=== PATIENT | female | born 1945 | race Caucasian/White ===

== ENCOUNTER 2016-02-17 10:50 | Outpatient (CLI) | payer MEDICARE, BC | END 2016-02-17 10:51 | disposition home or self-care (01) | DX: Z12.31 Encounter for screening mammogram for malignant neoplasm of breast (principal); Z85.3 Personal history of malignant neoplasm of breast ==

== ENCOUNTER 2016-03-02 08:49 | Outpatient (CLI) | payer MEDICARE, BC | END 2016-03-02 08:50 | disposition home or self-care (01) | DX: E03.9 Hypothyroidism, unspecified (principal); I10 Essential (primary) hypertension; E55.9 Vitamin D deficiency, unspecified; Z79.899 Other long term (current) drug therapy ==

== ENCOUNTER 2016-11-02 10:23 | Outpatient (CLI) | payer MEDICARE, BC ==
--- NOTE | 2016-11-02 11:44 | XRAY Report ---
THREE-VIEW LUMBAR SPINE: 11/02/2016 CLINICAL INDICATION: Back pain. FINDINGS: AP, lateral, coned-down views of the lumbar spine demonstrate mild degenerative disk and f acet disease. There is no evidence of compression fracture or subluxation. The bowel gas pattern is unremarkable. IMPRESSION: MILD DEGENERATIVE CHANGES. JOB #: [id number] EXT JOB #:[id number]
--- NOTE | 2016-11-02 12:37 | XRAY Report ---
LEFT HIP AND PELVIS: 11/02/2016 CLINICAL INDICATION: Left hip pain. FINDINGS: Frontal view of the hips and pelvis and frog-leg lateral view of the left hip demonstrate mild osteoarthritis. There is no evidence of acute fracture or dislocation. No radiopaque foreign b pascual is seen in the soft tissues. IMPRESSION: MILD OSTEOARTHRITIS. JOB #: [id number] EXT JOB #:[id number]
== END 2016-11-02 10:24 | disposition home or self-care (01) ==
LOC: DI 10:23
PROVIDERS: ATTEND Physician Assistant Medical
DX: M51.36 Other intervertebral disc degeneration, lumbar region (principal); M47.896 Other spondylosis, lumbar region; M16.12 Unilateral primary osteoarthritis, left hip
CPT/HCPCS: 72100

== ENCOUNTER 2017-02-23 10:02 | Outpatient (CLI) | payer MEDICARE, BC ==
--- NOTE | 2017-02-24 18:14 | Mammography Report ---
DATE OF SERVICE: 02/23/2017 DIGITAL SCREENING MAMMOGRAM: 02/23/2017 CLINICAL INDICATION: A 71-year-old with history of right breast cancer status post lumpectomy and radiation therapy, history of benign left breast biopsy for screening. COMPARISON: 02/2016, 01/2015, 01/2014, 01/2013, 12/2011, 12/2010, 12/2009. TECHNIQUE: Routine CC and MLO projections were obtained of the breasts. The breasts again demonstrate scattered fibroglandular densities bilaterally. Postoperative and posttreatment changes of the right breast and postoperative changes in the left breast are stable. Coarse and punctate, typically benign calcifications are present. No suspicious masses, clustered microcalcifications, or regions of architectural distortion are identified. IMPRESSION: Benign findings. RECOMMENDATIONS: Routine annual screening unless otherwise clinically indicated. BIRADS category 2 benign findings. STANDARD QUALIFYING STATEMENTS 1. This examination was reviewed with the aid of Computed-Aided Detection (CAD). 2. A negative or benign imaging report should not delay biopsy if clinically suspicious findings are present. Consider surgical consultation if warranted. More than 5% of cancers are not identified by imaging. 3. Dense breasts may obscure an underlying neoplasm. TD: 02/24/2017 19:13
== END 2017-02-23 10:03 | disposition home or self-care (01) ==
LOC: DI 10:02
PROVIDERS: ATTEND Physician Assistant Medical
DX: Z12.31 Encounter for screening mammogram for malignant neoplasm of breast (principal); Z85.3 Personal history of malignant neoplasm of breast
CPT/HCPCS: 77067

== ENCOUNTER 2017-02-28 10:09 | Inpatient (IN) | payer MEDICARE, BC ==
[2017-02-28] MEDS ORDERED: MELOXICAM 7.5 MG TABLET PO STA (12:14)
[2017-02-28] MEDS ORDERED: HYDROcod/ACETAM 5/325 MG TABLET PO STA (12:14)
--- NOTE | 2017-02-28 12:14 | ED Physician Documentation ---
PD HPI LOWER EXT INJURY - Stated complaint Stated Complaint: LEFT LEG PX - Chief complaint Chief Complaint: Ext Problem - History obtained from History obtained from: Patient, Family - History of Present Illness PD HPI LOW EXT INJURY LOCATION: Other (She went to [place] in the fall, she was sitting a lot and traveling a lot. When she got back she had hip and groin pain that was worse with motion. She had x-rays done of the lumbar spine and left hip showing mild degenerative changes. With conservative care of it got better but over the last few days has gotten worse again and she is basically nonfunctional, she finds she cannot walk and has pain in the lateral hip. There was no injury per se. She does have a history of remote colon and breast cancer. She denies weakness, numbness, tingling of the extremity or saddle anesthesia.) Review of Systems Ten Systems: 10 systems reviewed and negative Constitutional: denies: Fever, Chills, Weight Loss Cardiac: reports: Reviewed and negative Respiratory: reports: Reviewed and negative GI: reports: Reviewed and negative PD PAST MEDICAL HISTORY - Past Medical History Past Medical History: Yes Cardiovascular: Hypertension, High cholesterol Endocrine/Autoimmune: HyPOthyroidism GI: Colon polyps, Other HEENT: Glaucoma Musculoskeletal: None Derm: Rosacea - Past Surgical History General: Bowel surgery, Colonoscopy /REGIONAL LOSS 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 - Present Medications Home Medications: Ambulatory Orders Medication Instructions Recorded Confirmed Hydrochlorothiazide 25 mg PO DAILY 06/19/12 02/28/17 Levothyroxine Sodium [Levoxyl] 112 mcg PO QDAC 06/19/12 02/28/17 Multivitamin [Multi-Vitamin Daily] 1 each PO DAILY 06/19/12 02/28/17 amLODIPine [Norvasc] 7.5 mg PO DAILY 06/19/12 02/28/17 Calcium Carbonate/Vitamin D3 1 tab PO DAILY 02/28/17 02/28/17 [Calcium 500-Vit D3 200 Tablet] - Allergies Allergies/Adverse Reactions: Allergies Allergy/AdvReac Type Severity Reaction Status Date / Time cephalexin monohydrate * Allergy Intermediate Hives Verified 08/29/13 12:55 [From Keflex] morphine AdvReac Diaphoresis Verified 04/03/13 14:38 Tetracyclines AdvReac Nausea Verified 04/03/13 14:38 adhesive Allergy Severe Rash Uncoded 04/03/13 14:38 - Social History Does the pt smoke?: No Smoking Status: Never smoker - Family History Family history: reports: Non contributory PD ED PE NORMAL - Vitals Vital signs reviewed: Yes - General General: Alert and oriented X 3, No acute distress, Well developed/nourished - HEENT HEENT: PERRL, EOMI - Neck Neck: Supple, no meningeal sign, No bony TTP - Cardiac Cardiac: RRR, No murmur - Respiratory Respiratory: No respiratory distress, Clear bilaterally - Abdomen Abdomen: Soft, Non tender - Back Back: Other (Lumbar spine is nontender. The patient has equal and normal Achilles and patellar reflexes bilaterally. Normal sensation in all areas of the legs. Patient denies saddle anesthesia. Normal strength in flexion- extension at the ankles, knees, and flexion of the hips.) - Derm Derm: Normal color, Warm and dry - Extremities Extremities: Other (She is tender over the greater trochanter of the left hip and has pain with external rotation. There is no pedal edema or calf tenderness. ) - Neuro Neuro: Alert and oriented X 3, Normal speech - Psych Psych: Normal mood, Normal affect Results - Vitals Vitals: Vital Signs - 24 hr 02/28/17 10:25 Temperature 36.7 C Heart Rate 90 Respiratory 14 Rate Blood Pressure 139/66 H O2 Saturation 98 Oxygen O2 Source Room air - Labs Labs: Laboratory Tests 02/28/17 02/28/17 02/28/17 13:30 13:30 13:30 WBC 12.6 H RBC 4.81 Hgb 14.6 Hct 43.3 MCV 89.9 MCH 30.3 MCHC 33.7 RDW 14.4 Plt Count 255 MPV 7.8 L Neut # 10.4 H Lymph # 1.4 L Bryan # 0.7 Eos # 0.0 Baso # 0.1 Absolute Nucleated RBC 0.01 Nucleated RBC % 0.1 PT 11.5 INR 1.0 Sodium 139 Potassium 3.0 L Chloride 99 L Carbon Dioxide 25 Anion Gap 15.0 H BUN 25 H Creatinine 0.8 Estimated GFR (MDRD) 71 L Glucose 143 H Calcium 10.0 Total Bilirubin 0.7 AST 43 H ALT 19 Alkaline Phosphatase 32 L Total Protein 7.7 Albumin 4.6 Globulin 3.1 Albumin/Globulin Ratio 1.5 Lipase 35 - Rads (name of study) CT L hip Radiology: EMP read contemporaneously (She has an acute nondisplaced intertrochanteric fracture of the left hip and an older pelvic fracture.) PD MEDICAL DECISION MAKING - ED course ED course: 71-year-old woman with indolent left hip pain, jumped to CT imaging given negative x-rays previously and history of malignancy and surprised by intertrochanteric fracture hip fracture without clear mechanism. Spoke with Dr. Topete, the on-call orthopedist for consult at 1:20 PM he defers to the hospitalist for admission who was called at 1:25 PM. Departure - Departure Disposition: [facility] DC/Xfer Clinical Impression: Fracture, intertrochanteric, left femur Qualifiers: Encounter type: initial encounter Fracture type: closed Fracture alignment: nondisplaced Qualified Code(s): S72.145A - Nondisplaced intertrochanteric fracture of left femur, initial encounter for closed fracture Pelvic fracture Qualifiers: Encounter type: initial encounter Pelvic bone location: unspecified part of pelvis Fracture type: closed Fracture alignment: nondisplaced Qualified Code(s) : S32.9XXA - Fracture of unspecified parts of lumbosacral spine and pelvis, initial encounter for closed fracture Condition: Stable Discharge Date/Time: 02/28/17 12:02
--- NOTE | 2017-02-28 13:04 | CT Preliminary Report ---
Exam: CT LOWER EXTREMITY LEFT W/O IMPRESSION: 1. Acute nondisplaced left intertrochanteric femur fracture. 2. Subacute fractures of the left obturator ring. [facility] SITE ID: [id number]
--- NOTE | 2017-02-28 13:05 | CT Report ---
EXAM: LEFT HIP CT WITHOUT CONTRAST EXAM DATE: 02/28/2017 12:45 PM. CLINICAL HISTORY: Chest pain. Mild osteoarthritis. History of cancer. COMPARISON: Radiograph 11/02/2016. TECHNIQUE: Thin-section axial images were acquired of the hip without contrast. Post-processing: Carlos nal and sagittal reformats. Other: None. In accordance with CT protocol optimization, one or more of the following dose reduction techniques w ere utilized for this exam: automated exposure control, adjustment of mA and/or KV based on patient s ize, or use of iterative reconstructive technique. FINDINGS: Bones: There is an acute, complete transverse fracture of the left femur in the left inferior intertr ochanteric region. There are fractures of the left obturator ring involving the anterior pubic root a nd left inferior pubic ramus which are subacute. Joints: Minimal osteophyte formation is in the bilateral hip joints. Musculature: Normal. No fatty atrophy. Other: Sigmoid diverticulosis is present. IMPRESSION: 1. Acute nondisplaced left intertrochanteric femur fracture. 2. Subacute fractures of the left obturator ring. [facility] Referring Provider Line: [phone] SITE ID: [id number]
[2017-02-28] MEDS ORDERED: SODIUM CHLORIDE FLUSH 0.9% 10 ML SYRINGE IVP PRN (13:43)
[2017-02-28 13:47] LABS: BASOPHILS # (AUTO) 0.1 10^3/uL (0.0-0.1); BASOPHILS % (AUTO) 0.6 %; EOSINOPHILS % (AUTO) 0.3 %; HGB - HEMOGLOBIN 14.6 g/dL (12.0-16.0); LYMPHOCYTES # (AUTO) 1.4 10^3/uL (1.5-3.5); MEAN CORPUSCULAR HEMOGLOBIN 30.3 pg (27.0-31.0); MEAN CORPUSCULAR HGB CONC 33.7 g/dL (32.0-36.0); MEAN CORPUSCULAR VOLUME 89.9 fL (81.0-99.0); MEAN PLATELET VOLUME 7.8 fL (7.9-10.8); MONOCYTES # (AUTO) 0.7 10^3/uL (0.0-1.0); MONOCYTES % (AUTO) 5.8 %; NEUTROPHILS # (AUTO) 10.4 10^3/uL (1.5-6.6); NEUTROPHILS % (AUTO) 82.3 %; PLT - PLATELET COUNT 255 10^3/uL (130-450); RED BLOOD COUNT 4.81 10^6/uL (4.20-5.40); RED CELL DISTRIBUTION WIDTH 14.4 % (12.0-15.0); WHITE BLOOD COUNT 12.6 x10^3/uL (4.8-10.8)
[2017-02-28 13:54] LABS: PT - PROTHROMBIN TIME 11.5 secs (9.9-12.6)
[2017-02-28 13:58] LABS: ALBUMIN 4.6 g/dL (3.2-5.5); ALBUMIN/GLOBULIN RATIO 1.5 (1.0-2.2); BILIRUBIN,TOTAL 0.7 mg/dL (0.2-1.0); CREATININE 0.8 mg/dL (0.4-1.0); TOTAL PROTEIN 7.7 g/dL (6.7-8.2)
--- NOTE | 2017-02-28 14:23 | PROVIDER PROGRESS NOTE ---
Subjective - Prog Note Date Prog Note Date: 02/28/17 Prog Note Time: 14:20 - Subjective Pt reports feeling: No change (Left lateral hip pain , worse since Tuesday. No knkown trauma. Hx of intermittent left hip pain since trip last fall ( Oct). Has been walking on left side, although not able to climb stairs. No other injuries or MS complaints. Distant hx of breast CA(2007) and colon Ca ( 2003). No known recurrence.) Objective - Lab Results Fish Bones: 02/28/17 13:30 02/28/17 13:30 - Diagnostic Imaging Diagnostic Imaging Comments: CT scan shows left IT hip fracture - non displaced - Other Results/Comments Other Results/Comments: Left hip: non swollen; 1+ tender laterally. Some pain with hip motion. Moves toes well. Sensation intact. Good cap filling Assessment/Plan - Problem List (1) Fracture, intertrochanteric, left femur Impression: - stable fracture PLAN: As she [place] ate at about [id number], will admit for overnight pain control and medical stabilization. Will plan short interTan nailing of left hip fracture in AM. Consent signed after risk/benefits explained. Leg marked. Qualifiers: Encounter type: initial encounter Fracture type: closed Fracture alignment: nondisplaced Qualified Code(s): S72.145A - Nondisplaced intertrochanteric fracture of left femur, initial encounter for closed fracture
[2017-02-28] MEDS: SODIUM CHLORIDE 0.9% 1,000 ML IV SCH (15:11)
[2017-02-28] MEDS: SODIUM CHLORIDE FLUSH 0.9% 10 ML SYRINGE IVP SCH ×2 (15:12→20:28)
--- NOTE | 2017-02-28 15:15 | HISTORY & PHYSICAL EXAMINATION ---
Chief Complaint - Chief Complaint Chief Complaint: left hip pain History of Present Illness - Admitted From Admitted From:: ED - History Obtained From Records Reviewed: yes History obtained from: chart review, patient Exam Limitations: none - History of Present Illness HPI Comment/Other: Mima Crawford is a 71-year old white female with a past medical history of hypertension, hyperlipidemia, hypothyroidism, colon polyps, glaucoma, bilateral cataract surgery, rosacea, RUQ colectomy, colon cancer, right leg fracture, right breast lumpectomy, and urinary incontinence. She arrived at the ED for left hip pain that began Tuesday (3 days ago). Once in the ED a CT was performed that confirmed a left trochanter fracture. Ortho surgery was consulted for intertrochanteric fracture without a recollection of a recent fall or injury. She will be admitted by the hospitalist service, cleared for surgery and plan for repair in the AM. 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 One with vision problems, the other with osteoarthritis. Living arrangement: At home Living Situation: With spouse/s.o. Social History Notes: Patient is happily to [place] x50 years. She has 2 grown daughters and grandchildren. 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 Since alf, she primarly sits all day with light house chores including climbing a few flights of stairs for laundry duties and performs all ADL's independently. She enjoys reading, basket weaving and spending time with family. She has 1-2 glasses of wine each night, minimal tobacco use from age [age]years. She denies illicit drug use or second hand-smoke exposure. She wishes to be a FULL code including YES to chest compressions, intubation, cardiac shocks, and IV medications. - Substance History Use: Uses substance without health or social issues: NONE Abuse: Recurrent use of substance despite neg consequences: NONE Dependence: Experiences withdrawal or developed tolerances: NONE - POLST Patient has POLST: No POLST Status: Full Code Meds/Allgy - Home Medications Home Medications: Ambulatory Orders Medication Instructions Recorded Confirmed Hydrochlorothiazide 25 mg PO DAILY 06/19/12 02/28/17 Levothyroxine Sodium [Levoxyl] 112 mcg PO QDAC 06/19/12 02/28/17 Multivitamin [Multi-Vitamin Daily] 1 each PO DAILY 06/19/12 02/28/17 amLODIPine [Norvasc] 7.5 mg PO DAILY 06/19/12 02/28/17 Calcium Carbonate/Vitamin D3 1 tab PO DAILY 02/28/17 02/28/17 [Calcium 500-Vit D3 200 Tablet] - Allergies Allergies/Adverse Reactions: Allergies Allergy/AdvReac Type Severity Reaction Status Date / Time cephalexin monohydrate * Allergy Intermediate Hives Verified 08/29/13 12:55 [From Keflex] morphine AdvReac Diaphoresis Verified 04/03/13 14:38 Tetracyclines AdvReac Nausea Verified 04/03/13 14:38 adhesive Allergy Severe Rash Uncoded 04/03/13 14:38 Review of Systems - Constitutional Constitutional: denies: Fatigue, Fever, Chills, Weakness, Poor appetite, Weight gain, Weight loss - Eyes Eyes: reports: Corrective lenses. denies: Spots in vision, Field loss, Vision loss, Dipolpia - Ears, Nose & Throat Ears, Nose & Throat: denies: Ear pain, Hearing loss, Hearing aids, Vertigo, Nasal pain, Nasal discharge, Sore throat, Dental pain - Cardiovascular Cariovascular: denies: Irregular heart rate, Palpitations, Chest pain, Edema, Decr. exercise tolerance - Respiratory Respiratory: denies: Cough, Hemoptysis, Orthopnea, SOB at rest, SOB with exertion - Gastrointestinal Gastrointestinal: denies: Abdominal pain, Abdominal distention, Constipation, Diarrhea, Change in bowel habits, Black stools, Bloody stools, Reflux/heartburn - Genitourinary Genitourinary: reports: Incontinence Exam - Vital Signs Reviewed Vital Signs: Yes Vital Signs: Vital Signs x48h Temp Pulse Resp BP Pulse Ox 02/28/17 14:54 36.5 C 73 18 151/75 H 98 - Physical Exam General Appearance: positive: No acute distress, Alert Eyes Bilateral: positive: Normal inspection, PERRL ENT: positive: ENT inspection nml, Pharynx nml, No signs of dehydration Neck: positive: Nml inspection, Thyroid nml, No JVD, Trachea midline Respiratory: positive: Chest non-tender, No respiratory distress, Breath sounds nml Cardiovascular: positive: Regular rate & rhythm, No murmur, No gallop Peripheral Pulses: positive: 2+ Abdomen: positive: Non-tender, No organomegaly, Nml bowel sounds, No distention Back: positive: Nml inspection Skin: positive: No rash, Warm, Dry, Pallor, Other (rosecea) Extremities: positive: Non-tender, Pedal edema, Joint swelling, Other (left leg pain, decreased ROM.) Neurologic/Psychiatric: positive: Oriented x3, CN's nml (2-12), Motor nml, Sensation nml, Depressed mood/affect Reflexes: Bicep (R): 3+, Bicep (L): 3+ Conclusion/Plan - Problem List (1) Fracture, intertrochanteric, left femur Conclusion/Plan: A CT scan at the time of admission revealed an acute nondisplaced left intertrochanteric femur fracture. Patient has an unclear picture or history of her recent activities, which seem to be alarming. She denies a recent fall and lives a very sedentary lifestyle. Plan: Surgery in AM with Dr. Topete. Qualifiers: Encounter type: initial encounter Fracture type: closed Fracture alignment: nondisplaced Qualified Code(s): S72.145A - Nondisplaced intertrochanteric fracture of left femur, initial encounter for closed fracture (2) Pelvic fracture Conclusion/Plan: There is a subacute fracture of the left obturator ring per CT at the time of admission. Plan: Dr. Topete is planning surgery in AM. Qualifiers: Encounter type: initial encounter Pelvic bone location: unspecified part of pelvis Fracture type: closed Fracture alignment: nondisplaced Qualified Code(s): S32.9XXA - Fracture of unspecified parts of lumbosacral spine and pelvis, initial encounter for closed fracture (3) Hypothyroidism Conclusion/Plan: Patient takes a normal dose of synthroid at home, but states she thinks she needs her TSH re-checked as per her PCP. Plan: Continue synthroid and check TSH in am. - Lab Results Lab results reviewed: Yes Fish Bones: 03/01/17 05:08 03/01/17 05:08 - Diagnostic Imaging Results Diagnostic Imaging Results: positive: Final report reviewed Diagnostic Imaging Results Comments: FINDINGS: Bones: There is an acute, complete transverse fracture of the left femur in the left inferior intertrochanteric region. There are fractures of the left obturator ring involving the anterior pubic root and left inferior pubic ramus which are subacute. Joints: Minimal osteophyte formation is in the bilateral hip joints. Musculature: Normal. No fatty atrophy. Other: Sigmoid diverticulosis is present. IMPRESSION: 1. Acute nondisplaced left intertrochanteric femur fracture. 2. Subacute fractures of the left obturator ring. - EKG Results EKG Interpreted Independently: Yes Core Measures - Anticipated LOS I expect patient to be DC'd or transferred within 96 hours.: Yes - DVT/VTE - Prophylaxis VTE/DVT Device ordered at admit?: Yes VTE/DVT Prophylaxis med ordered at admit?: No Not Ordered - Medical Reason: Contraindicated - Stroke - Rehab Assessment Rehab services assessment to be ordered?: Yes - AMI - Statin at Admit Aspirin Prescribed on Admit: No Not Ordered - Medical Reason: Contraindicated
--- NOTE | 2017-02-28 20:20 | CONSULTATION NOTE ---
DATE OF SERVICE: 02/28/2017 Physician: Bryce Topete MD REFERRING PHYSICIAN: Neil Childers of the emergency room department. CHIEF COMPLAINT: "My left hip hurts." HISTORY OF PRESENT ILLNESS: Mima Crawford is a 71-year-old female who has had acute moderately severe, left hip pain since Tuesday. The patient denies any preceding trauma. She has been able to weightbear, albeit with moderate pain. She has been unable to walk up stairs in her 4-story home. When her symptoms did not improve over the weekend, she presented to the emergency room on today's date for an evaluation of her problem. CT scan of her left hip showed a nondisplaced left intertrochanteric hip fracture present. The patient denies any significant traumatic event preceding the onset of this pain. There was no loss of consciousness or other injuries. No distal weakness or numbness. The patient's recent medical history is significant in that she had left lateral hip pain, medial groin pain in 10/2016, while she was on the vacation with her . Again, there was no preceding trauma, but she had moderate to severe pain which limited her mobility and her weightbearing status. She, however, had no treatment in [place]. She mentioned that she had an x-ray obtained when she returned to [facility], although that was not available for review today. Her symptoms, however, did gradually improve to the point where she was essentially asymptomatic by 2016. She was doing well until just 3 days ago as noted above. PHYSICAL EXAMINATION: The patient appeared to be a pleasant, healthy-appearing woman lying in the stretcher in a mild amount of discomfort. LEFT HIP: The patient had mild lateral hip tenderness on palpation, had painful range of motion. The leg was not shortened or externally rotated. The patient was able to move her toes satisfactory. Sensation intact throughout the lower extremity. The patient had good capillary filling noted. CT scan of the left hip was reviewed and shows a nondisplaced oblique type fracture of her intertrochanteric hip region. ASSESSMENT: 1. Nondisplaced closed left intertrochanteric hip fracture. 2. History of osteopenia. 3. History of breast cancer - treated in 2003 with a mastectomy. She has been followed up by her oncologist and there has been no evidence of recurrence. 4. History of colon cancer - diagnosed and treated in 2003. PLAN: The patient was admitted to the medical service for a medical evaluation and clearance for surgery. She apparently last ate at approximately 12:30-1:00 on the day of her admission. It was elected to schedule her for urgent surgery Tuesday at 7:30 in the morning. We will plan on doing a short Intertan nailing of her hip fracture. The risks and benefits of surgery were explained to the patient including anesthesia risks, malunion, nonunion, infection, blood loss, blood clots, etc. The patient appeared to understand the risks and benefits and wishes to proceed with surgery as planned. Consent has been signed. The leg has been marked. TD: 02/28/2017 21:19
[2017-03-01] MEDS: SODIUM CHLORIDE 0.9% 1,000 ML IV SCH (00:48)
[2017-03-01] MEDS: SODIUM CHLORIDE FLUSH 0.9% 10 ML SYRINGE IVP SCH ×3 (04:58→16:48)
[2017-03-01 05:27] LABS: BASOPHILS # (AUTO) 0.1 10^3/uL (0.0-0.1); EOSINOPHILS # (AUTO) 0.2 10^3/uL (0.0-0.7); EOSINOPHILS % (AUTO) 2.4 %; HGB - HEMOGLOBIN 12.6 g/dL (12.0-16.0); LYMPHOCYTES # (AUTO) 1.7 10^3/uL (1.5-3.5); LYMPHOCYTES % (AUTO) 22.3 %; MEAN CORPUSCULAR HEMOGLOBIN 30.4 pg (27.0-31.0); MEAN CORPUSCULAR HGB CONC 33.4 g/dL (32.0-36.0); MEAN CORPUSCULAR VOLUME 91.2 fL (81.0-99.0); MEAN PLATELET VOLUME 7.7 fL (7.9-10.8); MONOCYTES # (AUTO) 0.8 10^3/uL (0.0-1.0); NEUTROPHILS # (AUTO) 4.9 10^3/uL (1.5-6.6); NEUTROPHILS % (AUTO) 64.3 %; PLT - PLATELET COUNT 213 10^3/uL (130-450); RED BLOOD COUNT 4.15 10^6/uL (4.20-5.40); RED CELL DISTRIBUTION WIDTH 13.8 % (12.0-15.0); WHITE BLOOD COUNT 7.6 x10^3/uL (4.8-10.8)
[2017-03-01 05:47] LABS: ALBUMIN 3.3 g/dL (3.2-5.5); ALBUMIN/GLOBULIN RATIO 1.4 (1.0-2.2); ALKALINE PHOSPHATASE 22 IU/L (42-121); ALT ALANINE AMINOTRANSFERASE 13 IU/L (10-60); AST ASPARTATE AMINOTRANSFERASE 32 IU/L (10-42); BILIRUBIN,TOTAL 0.5 mg/dL (0.2-1.0); BUN - BLOOD UREA NITROGEN 24 mg/dL (6-20); CALCIUM 8.8 mg/dL (8.5-10.3); CARBON DIOXIDE - CO2 24 mmol/L (21-32); CHLORIDE 108 mmol/L (101-111); CHOL/HDL RATIO 2.2 (<4.4); CHOLESTEROL 144 mg/dL; CREATININE 0.7 mg/dL (0.4-1.0); GFR - MDRD 82 (>89); GLUCOSE 110 mg/dL (70-100); HDL CHOLESTEROL 65 mg/dL; LDL CHOLESTEROL,CALCULATED 68 mg/dL; SODIUM 142 mmol/L (135-145); TOTAL PROTEIN 5.7 g/dL (6.7-8.2); VLDL CHOLESTEROL 11 mg/dL
[2017-03-01 06:11] LABS: HB2 TOTAL 13.5 g/dL; HEMOGLOBIN A1C 0.49 g/dL; HEMOGLOBIN A1C % 5.5 % (4.6-6.2)
[2017-03-01] MEDS: LEVOTHYROXINE 112 MCG TABLET PO SCH (06:31)
[2017-03-01] MEDS ORDERED: CLINDAMYCIN 900 MG/50 ML 50 ML IV SCH (08:00)
[2017-03-01] MEDS ORDERED: CLINDAMYCIN 600 MG/50 ML IV ONE (08:03)
[2017-03-01] MEDS ORDERED: BUPIVACAINE 0.25%-EPI 1:200000 PF 10 ML VIAL SUBQ ONE (08:42)
[2017-03-01] MEDS ORDERED: LACTATED RINGERS 1,000 ML IV ONE ×2 (08:43→09:02)
[2017-03-01] MEDS ORDERED: MIDAZOLAM 2 MG/2 ML VIAL IVP ONE (09:23)
[2017-03-01] MEDS ORDERED: PROPOFOL 200 MG/20 ML VIAL IVP ONE (09:23)
[2017-03-01] MEDS ORDERED: KETAMINE 500 MG/10 ML VIAL IVP ONE (09:23)
--- NOTE | 2017-03-01 09:34 | OPERATIVE REPORT ---
Operative Report - General Admit Date: 02/28/17 Procedure Date: 03/01/17 Planned Procedure: Short interTan nailing of left hip fracture Pre-Op Diagnosis: Left intertrochanteric hip fracture Procedure Performed: Short interTan nailing of left hip fracture Post Op Diagnosis: Same - Procedure Note Primary Surgeon: Unique Topete Secondary Surgeon: Laura Anesthesia Provider: Mikala Mcgill Anesthesia Technique: Spinal Pathology: Femoral reamings to pathology IV Fluids (mL): 1,000 Estimated Blood Loss (mL): 50 Complications: None
[2017-03-01] MEDS ORDERED: ONDANSETRON 4 MG/2 ML VIAL IVP PRN (09:37)
[2017-03-01] MEDS ORDERED: PROCHLORPERAZINE 10 MG/2 ML VIAL IVP PRN (09:37)
[2017-03-01] MEDS ORDERED: ACETAMINOPHEN 1,000 MG/100 ML 100 ML IV PRN (09:37)
[2017-03-01] MEDS ORDERED: SODIUM CHLORIDE FLUSH 0.9% 10 ML SYRINGE IVP PRN (09:37)
[2017-03-01] MEDS ORDERED: SENNA 8.6 MG TABLET PO PRN (09:41)
[2017-03-01] MEDS ORDERED: HYDROmorphone 1 MG/ML SYRINGE IVP STA (09:49)
[2017-03-01] MEDS ORDERED: SODIUM CHLORIDE 0.9% 1,000 ML IV SCH (10:00)
[2017-03-01] MEDS: POLYETHYLENE GLYCOL 3350 17 GM PACKET PO SCH (10:26)
--- NOTE | 2017-03-01 10:42 | OPERATIVE REPORT ---
DATE OF SERVICE: 03/01/2017 Physician: Bryce Topete MD DATE OF SURGERY: 03/01/2017 PREOPERATIVE DIAGNOSIS: Nondisplaced left intertrochanteric hip fracture. POSTOPERATIVE DIAGNOSIS: Nondisplaced left intertrochanteric hip fracture. PROCEDURE PERFORMED: Short Intertan nailing of left hip fracture. SURGEON: Bryce Topete MD SUPERVISING CHEF: None. ANESTHESIA: Spinal. DESCRIPTION OF PROCEDURE: Patient was taken to the operating room on the morning of 03/03/2017, where she was placed under spinal anesthetic without any complications. She was then repositioned supine and transferred to the fracture table. Her right unfractured extremity was then flexed and widely abducted and held in the well leg gaspar. Her left fractured extremity was then placed in the axial traction with the leg internally rotated about 20 degrees. Preoperative fluoroscopic views of the hip in AP and lateral projection, showed the fracture to be nondisplaced and good visualization of the proximal femur and hip joint. We then prepped and draped the lateral aspect of the hip in the usual fashion for our procedure. Through an oblique skin incision proximal to the tip of the greater trochanter, we dissected down to the greater trochanter. This was where we placed the tip of the threaded guidewire. Its position was confirmed in fluoroscopic views. We then drilled the threaded guide pin into the proximal femur from the tip of the greater trochanter to the level of the lesser trochanter. The position of the guidewire was confirmed in AP and lateral projections with the C-arm. Satisfied with this, we then reamed the proximal femur over our guide pin with the 16 mm channel reamer. We then removed the pin and reamer and replaced it with the chosen short Intertan nail - 10 mm x 18 cm; 125 degree angle Intertan nail. This was inserted on the insertion guide. Fluoroscopic views were used to determine the depth of penetration of our nail. When this was in the proper position, we then inserted the oval drill sleeve in the distal end of our insertion/alignment rig. This was placed against the lateral femoral cortex through a small skin incision in the lateral aspect of the hip. We then drilled the threaded tip guidewire through the drill guide, up through the proximal femur and femoral neck and into the femoral head. Fluoroscopic views, AP and lateral projection confirmed the proper position and depth of our guide pin to within a few millimeters of the subchondral bone in both projections. Direct measuring guide was used and we determined a 100 x 11 mm subtrochanteric hip lag screw would be selected. We then proceeded to ream with a cannulated reamer over our guide pin preparing the proximal femur, femoral neck and femoral head. We removed the reamer and then inserted the selected hip lag screw. Fluoroscopic views, AP and lateral projection showed proper position of the hip lag screw in the proximal end of our nail and up to within a few millimeters of the subchondral bone in AP and lateral projections. We then removed the hip screw apparatus used to insert the nail and the hip screw. We set the proximal set screw in the proximal end of the nail using the hinged screwdriver, tightening it very snug and then backing off 90 degrees. Lastly, we then inserted the distal locking screw. Using the combined gold and silver drill sleeve in the static hole in the distal end of our insertion guide, we inserted these guides up against the lateral femoral cortex through a small skin incision. Using the measuring drill, we drilled both the medial and lateral cortex. Off the drill, we determined a 35 mm length x 5 mm diameter distal locking screw would be utilized. We removed the drill and then inserted the selected screw through our tubular sleeve, drills sleeves. Fluoroscopic views then in AP and lateral projections both of the distal end of the nail, as well as the hip showed the satisfactory placement of our hardware, good reduction of our fracture. Satisfied with this, we then removed our insertion apparatus off the nail. We then proceeded to irrigate the wounds out thoroughly with saline. Closed the wound in layers using 1 stitch of 0 Vicryl to approximate the fascia emerson. Finally, buried simple stitches of 2-0 Vicryl were used to approximate the subcutaneous tissues and the proximal 2 wounds. Finally, skin waqas used to close the skin incisions in all 3 incisions. We then washed the wounds and then applied Xeroform gauze, 4 x 4's, and a Tegaderm dressing. The patient transferred off the fracture table onto her bed and taken to recovery room in satisfactory condition. ESTIMATED BLOOD LOSS: 50 mL REPLACEMENT: 1000 mL crystalloid. INTRAOPERATIVE COMPLICATIONS: None. PLAN: Patient may be weightbearing as tolerated in this extremity. [facility] in about 2 days. TD: 03/01/2017 11:41
[2017-03-01] MEDS: ACETAMINOPHEN 325 MG TABLET PO PRN ×3 (11:05→20:11)
[2017-03-01] MEDS: oxyCODONE 5 MG TABLET PO PRN ×3 (11:05→20:11)
[2017-03-01] MEDS ORDERED: HYDROmorphone 1 MG/ML SYRINGE IVP PRN (12:00)
--- NOTE | 2017-03-01 12:02 | PROVIDER PROGRESS NOTE ---
Subjective - Prog Note Date Prog Note Date: 03/01/17 Prog Note Time: 12:01 - Subjective Pt reports feeling: Improved Subjective: Mima has no complaints and denies chest pain, SOB, nausea, vomiting, or a new cough. She is enjoying her pure wick for urinary incontinence. Current Medications - Current Medications Current Medications: Active Medications Acetaminophen (Tylenol) 650 - 975 mg PO Q4HR PRN PRN Reason: PAIN Last Admin: 03/01/17 11:05 Dose: 650 mg Aspirin (Brandy) 325 mg PO BIDWM [facility] Docusate Sodium (Colace 100mg Capsule) 100 mg PO BID PRN PRN Reason: Constipation Hydromorphone HCl (Dilaudid Inj Syringe) 0.5 mg IVP Q2H PRN PRN Reason: PAIN Acetaminophen (Ofirmev) 100 mls @ 400 mls/hr IV Q6HR PRN PRN Reason: PAIN Clindamycin Phosphate (Cleocin 900 Mg/50 Ml) 50 mls @ 50 mls/hr IV Q8H [facility] Stop: 03/02/17 00:59 Levothyroxine Sodium (Synthroid) 112 mcg PO QDAC [facility] Last Admin: 03/01/17 06:31 Dose: 112 mcg Ondansetron HCl (Zofran Inj) 4 mg IVP Q6HR PRN PRN Reason: Nausea / Vomiting Oxycodone HCl (Roxicodone) 5 mg PO Q4HR PRN PRN Reason: PAIN Last Admin: 03/01/17 11:05 Dose: 5 mg Polyethylene Glycol (Miralax) 17 gm PO DAILY [facility] Last Admin: 03/01/17 10:26 Dose: Not Given Prochlorperazine Edisylate (Compazine Inj) 10 mg IVP Q6HR PRN PRN Reason: Nausea / Vomiting Senna (Senokot) 17.2 mg PO Q12H PRN PRN Reason: Constipation Sodium Chloride (Normal Saline Flush 0.9%) 10 ml IVP Q8HR [facility] Sodium Chloride (Normal Saline Flush 0.9%) 10 ml IVP PRN PRN PRN Reason: NEEDED PER PROVIDER ORDERS Hydrochlorothiazide 25 mg PO DAILY 06/19/12 Levothyroxine Sodium [Levoxyl] 112 mcg PO QDAC 06/19/12 Multivitamin [Multi-Vitamin Daily] 1 each PO DAILY 06/19/12 amLODIPine [Norvasc] 7.5 mg PO DAILY 06/19/12 Calcium Carbonate/Vitamin D3 [Calcium 500-Vit D3 200 Tablet] 1 tab PO DAILY Objective - Vital Signs/Intake & Output Reviewed Vital Signs: Yes Vital Signs: Vital Signs x48h Temp Pulse Resp BP Pulse Ox 03/01/17 10:50 36.3 C L 71 20 141/64 H 94 03/01/17 10:20 36.6 C 63 18 137/56 H 95 03/01/17 10:05 96 03/01/17 09:55 94 03/01/17 09:45 95 03/01/17 09:40 96 03/01/17 09:35 96 03/01/17 09:30 97 03/01/17 08:33 36.5 C 70 16 150/72 H 95 03/01/17 05:29 36.6 C 68 16 140/57 H 96 Intake & Output: Intake & Output 02/26/17 02/27/17 02/28/17 03/01/17 23:59 23:59 23:59 23:59 Intake Total 920 1961.667 Output Total 200 300 Balance 720 1661.667 - Objective General Appearance: positive: Alert, Moderate distress Eyes Bilateral: positive: Normal inspection ENT: positive: ENT inspection nml, Pharynx nml, No signs of dehydration Neck: positive: Nml inspection, Thyroid nml, No JVD, Trachea midline Respiratory: positive: Chest non-tender, No respiratory distress Cardiovascular: positive: Regular rate & rhythm, Systolic murmur Peripheral Pulses: 1+ Radial (R), 1+ Radial (L) Abdomen: positive: Non-tender, No organomegaly, Nml bowel sounds, No distention Back: positive: Nml inspection Skin: positive: No rash, Warm, Dry, Pallor Extremities: positive: Pedal edema (mild) Neurologic/Psychiatric: positive: Oriented x3, CN's nml (2-12), Motor nml, Sensory loss, Depressed mood/affect Reflexes: Bicep (R): 3+, Bicep (L): 3+ - Lab Results Fish Bones: 03/02/17 08:50 03/02/17 06:21 Other Labs: Lab Results x24hrs 01/03/01/17 03/01/17 Range/Units 05:08 05:08 05:08 WBC (4.8-10.8) x10^3/uL RBC (4.20-5.40) 10^6/uL Hgb (12.0-16.0) g/dL Hct (37.0-47.0) % MCV (81.0-99.0) fL MCH (27.0-31.0) pg MCHC (32.0-36.0) g/dL RDW (12.0-15.0) % Plt Count (130-450) 10^3/uL MPV (7.9-10.8) fL Neut # (1.5-6.6) 10^3/uL Lymph # (1.5-3.5) 10^3/uL [place] # (0.0-1.0) 10^3/uL Eos # (0.0-0.7) 10^3/uL Baso # (0.0-0.1) 10^3/uL Absolute Nucleated RBC x10^3/uL Nucleated RBC % /100WBC Sodium 142 (135-145) mmol/L Potassium 3.4 L (3.5-5.0) mmol/L Chloride 108 (101-111) mmol/L Carbon Dioxide 24 (21-32) mmol/L Anion Gap 10.0 (6-13) BUN 24 H (6-20) mg/dL Creatinine 0.7 (0.4-1.0) mg/dL Estimated GFR (MDRD) 82 L (>89) Glucose 110 H (70-100) mg/dL Glycated Hemoglobin 5.5 (4.6-6.2) % Estim Average Glucose 111 H (70-100) Calcium 8.8 (8.5-10.3) mg/dL Total Bilirubin 0.5 (0.2-1.0) mg/dL AST 32 (10-42) IU/L ALT 13 (10-60) IU/L Alkaline Phosphatase 22 L (42-121) IU/L Total Protein 5.7 L (6.7-8.2) g/dL Albumin 3.3 (3.2-5.5) g/dL Globulin 2.4 (2.1-4.2) g/dL Albumin/Globulin Ratio 1.4 (1.0-2.2) Triglycerides 54 ( - 149) mg/dL Cholesterol 144 ( - 199) mg/dL LDL Cholesterol, Calc 68 ( - 129) mg/dL VLDL Cholesterol 11 mg/dL HDL Cholesterol 65 (60 - ) mg/dL LDL/HDL Ratio 1.0 (<4.4) Cholesterol/HDL Ratio 2.2 (<4.4) TSH 4.04 (0.34-5.60) uIU/mL Blood Type Antibody Screen 03/01/17 02/28/17 Range/Units 05:08 13:47 WBC 7.6 (4.8-10.8) x10^3/uL RBC 4.15 L (4.20-5.40) 10^6/uL Hgb 12.6 (12.0-16.0) g/dL Hct 37.9 (37.0-47.0) % MCV 91.2 (81.0-99.0) fL MCH 30.4 (27.0-31.0) pg MCHC 33.4 (32.0-36.0) g/dL RDW 13.8 (12.0-15.0) % Plt Count 213 (130-450) 10^3/uL MPV 7.7 L (7.9-10.8) fL Neut # 4.9 (1.5-6.6) 10^3/uL Lymph # 1.7 (1.5-3.5) 10^3/uL [place] # 0.8 (0.0-1.0) 10^3/uL Eos # 0.2 (0.0-0.7) 10^3/uL Baso # 0.1 (0.0-0.1) 10^3/uL Absolute Nucleated RBC 0.00 x10^3/uL Nucleated RBC % 0.0 /100WBC Sodium (135-145) mmol/L Potassium (3.5-5.0) mmol/L Chloride (101-111) mmol/L Carbon Dioxide (21-32) mmol/L Anion Gap (6-13) BUN (6-20) mg/dL Creatinine (0.4-1.0) mg/dL Estimated GFR (MDRD) (>89) Glucose (70-100) mg/dL Glycated Hemoglobin (4.6-6.2) % Estim Average Glucose (70-100) Calcium (8.5-10.3) mg/dL Total Bilirubin (0.2-1.0) mg/dL AST (10-42) IU/L ALT (10-60) IU/L Alkaline Phosphatase (42-121) IU/L Total Protein (6.7-8.2) g/dL Albumin (3.2-5.5) g/dL Globulin (2.1-4.2) g/dL Albumin/Globulin Ratio (1.0-2.2) Triglycerides ( - 149) mg/dL Cholesterol ( - 199) mg/dL LDL Cholesterol, Calc ( - 129) mg/dL VLDL Cholesterol mg/dL HDL Cholesterol (60 - ) mg/dL LDL/HDL Ratio (<4.4) Cholesterol/HDL Ratio (<4.4) TSH (0.34-5.60) uIU/mL Blood Type A POSITIVE Antibody Screen NEGATIVE - Diagnostic Imaging Diagnostic Imaging Results: positive: Final report reviewed Assessment/Plan - Problem List (1) Fracture, intertrochanteric, left femur Impression: A CT scan at the time of admission revealed an acute nondisplaced left intertrochanteric femur fracture. Patient has an unclear picture or history of her recent activities, which seem inconclusive to the larger picture of the etiology of these fractures. She denies a recent fall and lives a very sedentary lifestyle independently at home with her . She generally takes care of all house work and performs her ADLs. Plan: Surgery in AM with Dr. Topete. Qualifiers: Encounter type: initial encounter Fracture type: closed Fracture alignment: nondisplaced Qualified Code(s): S72.145A - Nondisplaced intertrochanteric fracture of left femur, initial encounter for closed fracture (2) Pelvic fracture Impression: There is a subacute fracture of the left obturator ring per CT at the time of admission. Dr. Topete, ortho surgery completed a repair of this without complications. Plan: Physical therapy with early ambulation encouraged. Patient will be a great candidate for SNF. Qualifiers: Encounter type: initial encounter Pelvic bone location: unspecified part of pelvis Fracture type: closed Fracture alignment: nondisplaced Qualified Code(s): S32.9XXA - Fracture of unspecified parts of lumbosacral spine and pelvis, initial encounter for closed fracture (3) Hypothyroidism Impression: TSH today was normal ~4. There will be no changes and PCP will be updated with results. Plan: Continue medical management.
[2017-03-01] MEDS: DOCUSATE SODIUM 100 MG CAPSULE PO PRN (12:50)
[2017-03-01] MEDS: ASPIRIN 325 MG TABLET PO SCH (16:47)
[2017-03-01] MEDS: CLINDAMYCIN 900 MG/50 ML 50 ML IV SCH (16:48)
--- NOTE | 2017-03-01 19:11 | XRAY Report ---
DATE OF SERVICE: 03/01/2017 INTRAOPERATIVE LEFT HIP: 03/01/2017 CLINICAL INDICATION: Fracture fixation. Intraoperative frontal and lateral views of the left hip demonstrate dynamic compression screw and short IM bruna fixation of the left hip. 46 seconds of fluoroscopy time was provided to Dr. Topete. Four spot images obtained. IMPRESSION: Intraoperative imaging of left hip fracture fixation. TD: 03/01/2017 20:10
[2017-03-02] MEDS: oxyCODONE 5 MG TABLET PO PRN ×4 (00:21→12:56)
[2017-03-02] MEDS: CLINDAMYCIN 900 MG/50 ML 50 ML IV SCH (00:22)
[2017-03-02] MEDS: ACETAMINOPHEN 325 MG TABLET PO PRN ×5 (00:30→22:50)
[2017-03-02] MEDS ORDERED: POTASSIUM CHLORIDE 20 MEQ TABLET PO SCH (01:13)
[2017-03-02] MEDS: SODIUM CHLORIDE FLUSH 0.9% 10 ML SYRINGE IVP SCH ×3 (04:55→20:15)
[2017-03-02 06:37] LABS: BASOPHILS % (AUTO) 0.5 %; EOSINOPHILS # (AUTO) 0.1 10^3/uL (0.0-0.7); EOSINOPHILS % (AUTO) 1.1 %; HGB - HEMOGLOBIN 12.6 g/dL (12.0-16.0); LYMPHOCYTES % (AUTO) 10.3 %; MEAN CORPUSCULAR HEMOGLOBIN 30.8 pg (27.0-31.0); MEAN CORPUSCULAR HGB CONC 34.3 g/dL (32.0-36.0); MEAN CORPUSCULAR VOLUME 89.9 fL (81.0-99.0); MEAN PLATELET VOLUME 7.6 fL (7.9-10.8); MONOCYTES # (AUTO) 0.8 10^3/uL (0.0-1.0); MONOCYTES % (AUTO) 8.3 %; NEUTROPHILS # (AUTO) 7.6 10^3/uL (1.5-6.6); NEUTROPHILS % (AUTO) 79.8 %; PLT - PLATELET COUNT 209 10^3/uL (130-450); RED BLOOD COUNT 4.08 10^6/uL (4.20-5.40); WHITE BLOOD COUNT 9.5 x10^3/uL (4.8-10.8)
[2017-03-02] MEDS: LEVOTHYROXINE 112 MCG TABLET PO SCH (06:48)
[2017-03-02 06:51] LABS: ALBUMIN 3.4 g/dL (3.2-5.5); ALBUMIN/GLOBULIN RATIO 1.3 (1.0-2.2); BILIRUBIN,TOTAL 0.8 mg/dL (0.2-1.0); CALCIUM 8.9 mg/dL (8.5-10.3); CREATININE 0.6 mg/dL (0.4-1.0)
[2017-03-02] MEDS: amLODIPine 5 MG TABLET PO SCH (08:23)
[2017-03-02] MEDS: CHOLECALCIFEROL 400 UNIT TABLET PO SCH (08:23)
[2017-03-02] MEDS: hydroCHLOROthiazide 25 MG TABLET PO SCH ×2 (08:24→08:27)
[2017-03-02] MEDS: MULTIVITAMIN TABLET PO SCH (08:24)
[2017-03-02] MEDS: ASPIRIN 325 MG TABLET PO SCH ×2 (08:24→17:09)
[2017-03-02] MEDS: CALCIUM CARBONATE CHEW 500 MG TABLET PO SCH (08:25)
[2017-03-02] MEDS: POLYETHYLENE GLYCOL 3350 17 GM PACKET PO SCH (08:25)
[2017-03-02 09:03] LABS: HGB - HEMOGLOBIN 13.2 g/dL (12.0-16.0)
--- NOTE | 2017-03-02 12:00 | PROVIDER PROGRESS NOTE ---
Subjective - Prog Note Date Prog Note Date: 03/02/17 - Subjective Pt reports feeling: Improved Subjective: pt state her pain is good controlled, she is ready to work with PT/OT for ambulation and movement. No other complaints. Current Medications - Current Medications Current Medications: Active Medications Acetaminophen (Tylenol) 650 - 975 mg PO Q4HR PRN PRN Reason: PAIN Last Admin: 03/02/17 04:48 Dose: 650 mg Amlodipine Besylate (Norvasc) 7.5 mg PO DAILY [facility] Last Admin: 03/02/17 08:23 Dose: 7.5 mg Aspirin (Brandy) 325 mg PO BIDWM [facility] Last Admin: 03/02/17 08:24 Dose: 325 mg Calcium Carbonate/Glycine (Tums) 500 mg PO DAILY [facility] Last Admin: 03/02/17 08:25 Dose: 500 mg Cholecalciferol (Vitamin D3) 200 unit PO DAILY [facility] Last Admin: 03/02/17 08:23 Dose: 200 unit Docusate Sodium (Colace 100mg Capsule) 100 mg PO BID PRN PRN Reason: Constipation Last Admin: 03/01/17 12:50 Dose: 100 mg Hydrochlorothiazide (Hydrodiuril) 25 mg PO DAILY [facility] Last Admin: 03/02/17 08:27 Dose: Not Given Hydromorphone HCl (Dilaudid Inj Syringe) 0.5 mg IVP Q2H PRN PRN Reason: PAIN Last Admin: 03/01/17 12:11 Dose: 0.5 mg Acetaminophen (Ofirmev) 100 mls @ 400 mls/hr IV Q6HR PRN PRN Reason: PAIN Levothyroxine Sodium (Synthroid) 112 mcg PO QDAC [facility] Last Admin: 03/02/17 06:48 Dose: 112 mcg Multivitamins (Theragran) 1 tab PO DAILY [facility] Last Admin: 03/02/17 08:24 Dose: 1 tab Ondansetron HCl (Zofran Inj) 4 mg IVP Q6HR PRN PRN Reason: Nausea / Vomiting Last Admin: 03/01/17 16:46 Dose: 4 mg Oxycodone HCl (Roxicodone) 5 mg PO Q4HR PRN PRN Reason: PAIN Last Admin: 03/02/17 08:38 Dose: 5 mg Polyethylene Glycol (Miralax) 17 gm PO DAILY [facility] Last Admin: 03/02/17 08:25 Dose: 17 gm Prochlorperazine Edisylate (Compazine Inj) 10 mg IVP Q6HR PRN PRN Reason: Nausea / Vomiting Senna (Senokot) 17.2 mg PO Q12H PRN PRN Reason: Constipation Sodium Chloride (Normal Saline Flush 0.9%) 10 ml IVP Q8HR [facility] Last Admin: 03/02/17 04:55 Dose: 10 ml Sodium Chloride (Normal Saline Flush 0.9%) 10 ml IVP PRN PRN PRN Reason: NEEDED PER PROVIDER ORDERS Last Admin: 03/02/17 01:42 Dose: 10 ml Hydrochlorothiazide 25 mg PO DAILY 06/19/12 Levothyroxine Sodium [Levoxyl] 112 mcg PO QDAC 06/19/12 Multivitamin [Multi-Vitamin Daily] 1 each PO DAILY 06/19/12 amLODIPine [Norvasc] 7.5 mg PO DAILY 06/19/12 Calcium Carbonate/Vitamin D3 [Calcium 500-Vit D3 200 Tablet] 1 tab PO DAILY Objective - Vital Signs/Intake & Output Reviewed Vital Signs: Yes Vital Signs: Vital Signs x48h Temp Pulse Resp BP Pulse Ox 03/02/17 08:00 81 12 154/76 H 97 03/02/17 04:53 36.7 C 80 18 151/71 H 95 Intake & Output: Intake & Output 02/27/17 02/28/17 03/01/17 03/02/17 23:59 23:59 23:59 23:59 Intake Total 920 2751.667 960 Output Total 200 500 150 Balance 720 2251.667 810 - Objective General Appearance: positive: No acute distress, Alert. negative: Lethargic Eyes Bilateral: positive: Normal inspection, PERRL, No lid inflammation, Conjunctivae nml ENT: positive: ENT inspection nml, Pharynx nml, No signs of dehydration. negative: Purulent nasal drainage, Pharyngeal erythema, Oral lesions, Dry mucous membranes Neck: positive: Nml inspection, Thyroid nml, No JVD, Trachea midline. negative : Thyromegaly, Lymphadenopathy (R), Lymphadenopathy (L), Stiff neck, Carotid bruit, Swelling/bruising, Tracheal deviation Respiratory: positive: Chest non-tender, No respiratory distress, Breath sounds nml. negative: Wheezes, Rales, Rhonchi Cardiovascular: positive: Regular rate & rhythm, No murmur, No gallop. negative : Irregularly irregular, Extrasystoles, Tachycardia, Bradycardia, Systolic murmur, Diastolic murmur Peripheral Pulses: 2+ Radial (R), 2+ Radial (L), 2+ Dorsalis pedis (R), 2+ Dorsalis pedis (L) Abdomen: positive: Non-tender, No organomegaly, Nml bowel sounds, No distention. negative: Tenderness, Guarding, Rebound Back: positive: Nml inspection. negative: CVA tenderness (R), CVA tenderness (L ) Skin: positive: Color nml, No rash, Warm, Dry. negative: Cyanosis, Diaphoresis , Pallor, Skin rash Extremities: positive: Non-tender, Full ROM, Nml appearance. negative: Calf tenderness, Joint swelling, Rancho's sign/cords Neurologic/Psychiatric: positive: Oriented x3, Motor nml, Sensation nml. negative: Mood/affect nml, Weakness, Sensory loss, Facial droop, Slurred/abnml speech, Depressed mood/affect - Lab Results Fish Bones: 03/02/17 08:50 03/02/17 06:21 Other Labs: Lab Results x24hrs 03/02/17 03/02/17 03/02/17 Range/Units 08:50 06:21 06:21 WBC 9.5 (4.8-10.8) x10^3/uL RBC 4.08 L (4.20-5.40) 10^6/uL Hgb 13.2 12.6 (12.0-16.0) g/dL Hct 38.5 36.7 L (37.0-47.0) % MCV 89.9 (81.0-99.0) fL MCH 30.8 (27.0-31.0) pg MCHC 34.3 (32.0-36.0) g/dL RDW 14.0 (12.0-15.0) % Plt Count 209 (130-450) 10^3/uL MPV 7.6 L (7.9-10.8) fL Neut # 7.6 H (1.5-6.6) 10^3/uL Lymph # 1.0 L (1.5-3.5) 10^3/uL [place] # 0.8 (0.0-1.0) 10^3/uL Eos # 0.1 (0.0-0.7) 10^3/uL Baso # 0.0 (0.0-0.1) 10^3/uL Absolute Nucleated RBC 0.00 x10^3/uL Nucleated RBC % 0.0 /100WBC Sodium 135 (135-145) mmol/L Potassium 4.2 (3.5-5.0) mmol/L Chloride 102 (101-111) mmol/L Carbon Dioxide 25 (21-32) mmol/L Anion Gap 8.0 (6-13) BUN 12 (6-20) mg/dL Creatinine 0.6 (0.4-1.0) mg/dL Estimated GFR (MDRD) 98 (>89) Glucose 137 H (70-100) mg/dL Calcium 8.9 (8.5-10.3) mg/dL Total Bilirubin 0.8 (0.2-1.0) mg/dL AST 84 H (10-42) IU/L ALT 43 (10-60) IU/L Alkaline Phosphatase 29 L (42-121) IU/L Total Protein 6.0 L (6.7-8.2) g/dL Albumin 3.4 (3.2-5.5) g/dL Globulin 2.6 (2.1-4.2) g/dL Albumin/Globulin Ratio 1.3 (1.0-2.2) Assessment/Plan - Problem List (1) Fracture, intertrochanteric, left femur Impression: (1) Fracture, intertrochanteric, left femur Impression: pt is doing well after post status of operation one day. pain is good controlled , HGB is stable. PT and OT evaluation and treatment to pt follow up orthosurgeon's recommendation A CT scan at the time of admission revealed an acute nondisplaced left intertrochanteric femur fracture. Patient has an unclear picture or history of her recent activities, which seem inconclusive to the larger picture of the etiology of these fractures. She denies a recent fall and lives a very sedentary lifestyle independently at home with her . She generally takes care of all house work and performs her ADLs. Plan: Surgery in AM with Dr. Topete. (2) Pelvic fracture Impression: pt is doing well, continue PT/OT, follow up surgeon's recommendation There is a subacute fracture of the left obturator ring per CT at the time of admission. Dr. Topete, ortho surgery completed a repair of this without complications. Plan: Physical therapy with early ambulation encouraged. Patient will be a great candidate for SNF. (3) Hypothyroidism Impression: stable, TSH normal continue home regime TSH today was normal ~4. There will be no changes and PCP will be updated with results. Plan: Continue medical management. Qualifiers: Encounter type: initial encounter Fracture type: closed Fracture alignment: nondisplaced Qualified Code(s): S72.145A - Nondisplaced intertrochanteric fracture of left femur, initial encounter for closed fracture
--- NOTE | 2017-03-02 13:25 | PROVIDER PROGRESS NOTE ---
Subjective - Prog Note Date Prog Note Date: 03/02/17 Prog Note Time: 13:22 - Subjective Pt reports feeling: Improved (Mild hip pain. UP in chair eating.) Objective - Vital Signs/Intake & Output Vital Signs: Vital Signs x48h Pulse Resp BP Pulse Ox 03/02/17 08:00 81 12 154/76 H 97 Intake & Output: Intake & Output 02/27/17 02/28/17 03/01/17 03/02/17 23:59 23:59 23:59 23:59 Intake Total 920 2751.667 1320 Output Total 200 500 150 Balance 720 2251.667 1170 - Lab Results Fish Bones: 03/02/17 08:50 03/02/17 06:21 Other Labs: Lab Results x24hrs 03/02/17 03/02/17 03/02/17 Range/Units 08:50 06:21 06:21 WBC 9.5 (4.8-10.8) x10^3/uL RBC 4.08 L (4.20-5.40) 10^6/uL Hgb 13.2 12.6 (12.0-16.0) g/dL Hct 38.5 36.7 L (37.0-47.0) % MCV 89.9 (81.0-99.0) fL MCH 30.8 (27.0-31.0) pg MCHC 34.3 (32.0-36.0) g/dL RDW 14.0 (12.0-15.0) % Plt Count 209 (130-450) 10^3/uL MPV 7.6 L (7.9-10.8) fL Neut # 7.6 H (1.5-6.6) 10^3/uL Lymph # 1.0 L (1.5-3.5) 10^3/uL [place] # 0.8 (0.0-1.0) 10^3/uL Eos # 0.1 (0.0-0.7) 10^3/uL Baso # 0.0 (0.0-0.1) 10^3/uL Absolute Nucleated RBC 0.00 x10^3/uL Nucleated RBC % 0.0 /100WBC Sodium 135 (135-145) mmol/L Potassium 4.2 (3.5-5.0) mmol/L Chloride 102 (101-111) mmol/L Carbon Dioxide 25 (21-32) mmol/L Anion Gap 8.0 (6-13) BUN 12 (6-20) mg/dL Creatinine 0.6 (0.4-1.0) mg/dL Estimated GFR (MDRD) 98 (>89) Glucose 137 H (70-100) mg/dL Calcium 8.9 (8.5-10.3) mg/dL Total Bilirubin 0.8 (0.2-1.0) mg/dL AST 84 H (10-42) IU/L ALT 43 (10-60) IU/L Alkaline Phosphatase 29 L (42-121) IU/L Total Protein 6.0 L (6.7-8.2) g/dL Albumin 3.4 (3.2-5.5) g/dL Globulin 2.6 (2.1-4.2) g/dL Albumin/Globulin Ratio 1.3 (1.0-2.2) - Other Results/Comments Other Results/Comments: EXAM: Dressing intact. Mild pain with hip motion. Sitting up in chair. Moves toes well. Sensation intact. Assessment/Plan - Problem List (1) Fracture, intertrochanteric, left femur Impression: satis post op PLAN: To SNF tomorrow for her postop rehab. If path report of her bone bx is unavailable on discharge, she will follow up with her PCP. Orthopedic follow up with be in clinic in 2 weeks for SR and XR. Will continue walker ambulation - WBAT on left. Qualifiers: Encounter type: initial encounter Fracture type: closed Fracture alignment: nondisplaced Qualified Code(s): S72.145A - Nondisplaced intertrochanteric fracture of left femur, initial encounter for closed fracture
--- NOTE | 2017-03-02 15:50 | XRAY Report ---
[facility]: Fluoroscopy time only, 4 images submitted for interpretation. Fluoroscopy time 0 minutes, 46 seconds. NORMA
[2017-03-02] MEDS: DOCUSATE SODIUM 100 MG CAPSULE PO PRN (17:09)
[2017-03-03] MEDS: ACETAMINOPHEN 325 MG TABLET PO PRN ×2 (05:43→10:55)
[2017-03-03] MEDS: LEVOTHYROXINE 112 MCG TABLET PO SCH (05:59)
[2017-03-03] MEDS: SODIUM CHLORIDE FLUSH 0.9% 10 ML SYRINGE IVP SCH ×2 (06:00→12:28)
[2017-03-03 06:06] LABS: BASOPHILS # (AUTO) 0.1 10^3/uL (0.0-0.1); BASOPHILS % (AUTO) 0.6 %; EOSINOPHILS # (AUTO) 0.2 10^3/uL (0.0-0.7); EOSINOPHILS % (AUTO) 2.1 %; LYMPHOCYTES # (AUTO) 1.6 10^3/uL (1.5-3.5); LYMPHOCYTES % (AUTO) 16.1 %; MEAN CORPUSCULAR HEMOGLOBIN 30.5 pg (27.0-31.0); MEAN CORPUSCULAR HGB CONC 33.6 g/dL (32.0-36.0); MEAN CORPUSCULAR VOLUME 90.7 fL (81.0-99.0); MONOCYTES # (AUTO) 0.8 10^3/uL (0.0-1.0); MONOCYTES % (AUTO) 8.1 %; NEUTROPHILS % (AUTO) 73.1 %; PLT - PLATELET COUNT 225 10^3/uL (130-450); RED BLOOD COUNT 4.25 10^6/uL (4.20-5.40); RED CELL DISTRIBUTION WIDTH 14.3 % (12.0-15.0); WHITE BLOOD COUNT 9.6 x10^3/uL (4.8-10.8)
[2017-03-03 06:22] LABS: ALBUMIN 3.6 g/dL (3.2-5.5); ALBUMIN/GLOBULIN RATIO 1.2 (1.0-2.2); BILIRUBIN,TOTAL 1.1 mg/dL (0.2-1.0); CALCIUM 9.1 mg/dL (8.5-10.3); CREATININE 0.7 mg/dL (0.4-1.0); TOTAL PROTEIN 6.5 g/dL (6.7-8.2)
--- NOTE | 2017-03-03 07:29 | PROVIDER PROGRESS NOTE ---
Subjective - Prog Note Date Prog Note Date: 03/03/17 Prog Note Time: 07:27 - Subjective Subjective: No new complaints. feeling pretty good Objective - Vital Signs/Intake & Output Vital Signs: Vital Signs x48h Temp Pulse Resp BP Pulse Ox 03/03/17 01:32 36.9 C 87 16 155/72 H 95 Intake & Output: Intake & Output 02/28/17 03/01/17 03/02/17 03/03/17 23:59 23:59 23:59 23:59 Intake Total 920 2751.667 1420 200 Output Total 200 500 850 Balance 720 2251.667 570 200 - Lab Results Fish Bones: 03/03/17 05:34 03/03/17 05:34 Other Labs: Lab Results x24hrs 03/03/17 03/03/17 03/02/17 Range/Units 05:34 05:34 08:50 WBC 9.6 (4.8-10.8) x10^3/uL RBC 4.25 (4.20-5.40) 10^6/uL Hgb 13.0 13.2 (12.0-16.0) g/dL Hct 38.5 38.5 (37.0-47.0) % MCV 90.7 (81.0-99.0) fL MCH 30.5 (27.0-31.0) pg MCHC 33.6 (32.0-36.0) g/dL RDW 14.3 (12.0-15.0) % Plt Count 225 (130-450) 10^3/uL MPV 8.0 (7.9-10.8) fL Neut # 7.0 H (1.5-6.6) 10^3/uL Lymph # 1.6 (1.5-3.5) 10^3/uL Schuyler # 0.8 (0.0-1.0) 10^3/uL Eos # 0.2 (0.0-0.7) 10^3/uL Baso # 0.1 (0.0-0.1) 10^3/uL Absolute Nucleated RBC 0.00 x10^3/uL Nucleated RBC % 0.0 /100WBC Sodium 137 (135-145) mmol/L Potassium 3.8 (3.5-5.0) mmol/L Chloride 102 (101-111) mmol/L Carbon Dioxide 24 (21-32) mmol/L Anion Gap 11.0 (6-13) BUN 17 (6-20) mg/dL Creatinine 0.7 (0.4-1.0) mg/dL Estimated GFR (MDRD) 82 L (>89) Glucose 115 H (70-100) mg/dL Calcium 9.1 (8.5-10.3) mg/dL Total Bilirubin 1.1 H (0.2-1.0) mg/dL AST 119 H (10-42) IU/L ALT 106 H (10-60) IU/L Alkaline Phosphatase 44 (42-121) IU/L Total Protein 6.5 L (6.7-8.2) g/dL Albumin 3.6 (3.2-5.5) g/dL Globulin 2.9 (2.1-4.2) g/dL Albumin/Globulin Ratio 1.2 (1.0-2.2) - Other Results/Comments Other Results/Comments: EXAM: Dressing ok. N/V ok distally Assessment/Plan - Problem List (1) Fracture, intertrochanteric, left femur Impression: satis post op PLAN: Ok orthopedicly to transfer to SNF. Follow up in 2 weeks Qualifiers: Encounter type: initial encounter Fracture type: closed Fracture alignment: nondisplaced Qualified Code(s): S72.145A - Nondisplaced intertrochanteric fracture of left femur, initial encounter for closed fracture
[2017-03-03 08:25] VITALS: BP 152/80
[2017-03-03] MEDS: amLODIPine 5 MG TABLET PO SCH (08:46)
[2017-03-03] MEDS: MULTIVITAMIN TABLET PO SCH (08:46)
[2017-03-03] MEDS: CALCIUM CARBONATE CHEW 500 MG TABLET PO SCH (08:47)
[2017-03-03] MEDS: hydroCHLOROthiazide 25 MG TABLET PO SCH (08:47)
[2017-03-03] MEDS: ASPIRIN 325 MG TABLET PO SCH (08:47)
[2017-03-03] MEDS: DOCUSATE SODIUM 100 MG CAPSULE PO PRN (08:47)
[2017-03-03] MEDS: CHOLECALCIFEROL 400 UNIT TABLET PO SCH (08:47)
[2017-03-03] MEDS: POLYETHYLENE GLYCOL 3350 17 GM PACKET PO SCH (09:03)
--- NOTE | 2017-03-03 10:26 | Discharge Plan ---
"Discharge Plan for SNF / ONI - DC Plan and Transition Orders Disposition: 03 SNF DC/Xfer Condition: Stable SNF Transition Orders: Admit to: [[facility]] under the care of [Sonia Ferris] Discharge Diagnosis: [fracture, left femur; pelvic fracture; hypothyrodism; HTN; oestoporosis] Medicare Certification: I certify that Post Hospital fpc care is medically necessary on a continuing basis for any of the conditions for which she/he is receiving care during hospitalization. Notify PCP of admission and forward orders to primary provider for signature. Weight on admission and [83kg]. Call PCP immediately if weight increases by [4 ] pounds or if patient develops dyspnea, chest pain/tightness or edema. House Bowel Program: [Yes] If no BM after 2 days, nurse may give M.O.M. 30ml PO PRN and /or ducolax Supp 1 MD and /or VENUS 250mg P.O., and/or senna 1-2 tabs PO. On day 3 nurse may give repeat above order until residents constipation is resolved. Immunizations: Annual Influenza Vaccine: [Yes]. (between Oct 08 and May 07.) Unless allergy or already given Two-Step PPD: [Yes] per [facility] [id number] or appropriate documentation of approved exceptions Treatments & Other Orders: [May see PCP in 3-4 days, see orthopedics in 2 weeks, continue walker ambulation, WBAT on left] Oxygen Orders: [n] Lab Tests or X-Rays Orders: [] Orthopedic Orders: [see orthopedicsylwia in 2 weeks]. Medications: PLEASE REFER TO THE DISCHARGE MEDICATION LIST. Insulin Orders? [No] Diagnosis: Diabetes Initiate hypo and hyperglycemia protocols for BG <70 and BG >375. May check BG prn for signs/symptoms of dysglycemia. Frequency of BG checks: [AC/Meal/HS] Basal Insulin: [] Lantus 100 units / ml inject subq as follows: [] [] Other: [] Correction Insulin: - Select the type of insulin below [Choose: Novolog/Humalog]100 units /ml insulin inject subq per orders indicate below [] LOW DOSE [] MODERATE DOSE [] MODERATE/HIGH DOSE [] HIGH DOSE GB UNITS GB UNITS GB UNITS GB UNITS 61-140 0 UNITS 61-140 0 UNITS 61-140 0 UNITS 61-140 0 UNITS 141-175 1 UNITS 141-175 1 UNITS 141-175 2 UNITS 141-175 3 UNITS 176-225 2 UNITS 176-225 3 UNITS 176-225 4 UNITS 176-225 5 UNITS 226-275 3 UNITS 226-275 5 UNITS 226-275 6 UNITS 226-275 7 UNITS 276-325 4 UNITS 276-325 7 UNITS 276-325 8 UNITS 276-325 9 UNITS 326-375 5 UNITS 326-375 9 UNITS 326-375 10 UNITS 326-375 11 UNITS >375 CONTACT MD >375 CONTACT MD >375 CONTACT MD >375 CONTACT MD Custom Dosing: [Choose: None/Novolog/Humalog] 100 units/ml Insulin inject subq as follows: GB Units 61-140 [] Units 141-175 [] Units 176-225 [] Units 226-275 [] Units 276-325 []Units 326-375 [] Units >375 Contact MD Allergies and Adverse Reactions: Allergies Allergy/AdvReac Type Severity Reaction Status Date / Time cephalexin monohydrate * Allergy Intermediate Hives Verified 08/29/13 12:55 [From Keflex] morphine AdvReac Diaphoresis Verified 04/03/13 14:38 Tetracyclines AdvReac Nausea Verified 04/03/13 14:38 adhesive Allergy Severe Rash Uncoded 04/03/13 14:38 - Medications New Prescriptions: Aspirin EC [Ecotrin] 325 mg PO BID #14 tablet - Diet Type: Geriatric Texture: Regular Liquids: Thin May have monthly special meal: Yes - Therapies | Activity Therapy: Evaluation | Treat if indicated: PT, OT Rehabilitation Potential: Maximize functional status Activity: Activity as Tolerated Weight Bearing: Full Weight Additional Instructions: May see PCP in 3-4 days, see , orthopedics, in 2 weeks, continue walker ambulation, WBAT on left Follow Up: May see PCP in 3-4 days, see orthopedics in 2 weeks, continue walker ambulation, WBAT on left"
[2017-03-03] MEDS: oxyCODONE 5 MG TABLET PO PRN (10:55)
--- NOTE | 2017-03-03 10:55 | DISCHARGE SUMMARY ---
"Discharge Summary Discharge Date: 03/03/17 Discharging Provider: VITALE Primary Care Provider: Sonia Orr Condition at Discharge: Stable Discharge Disposition: SNF DC/Xfer Discharge Facility Name: [facility] - DIAGNOSES Admission Diagnoses: (1) Fracture, intertrochanteric, left femur (2) Pelvic fracture (3) Hypothyroidism Discharge Diagnoses with Status of Each Condition: (1) Fracture, intertrochanteric, left femur Orthopetics relief pt to be d/c to SNF. pt's pain is good controlled. Walk ambulation is well doing (2) Pelvic fracture Orthopetics relief pt to be d/c to SNF. pt's pain is good controlled. Walk ambulation is well doing. Pathology result was discussed with pt by orthopedics and me. It is negative to neoplasm per orthopedics report (3) Hypothyroidism stable, continue home regime pt is prescribed pain medication to [facility] for further care. - HPI History of Present Illness: please refer from Ms De La Rosa's HPI as the following: Mima Crawford is a 71-year old white female with a past medical history of hypertension, hyperlipidemia, hypothyroidism, colon polyps, glaucoma, bilateral cataract surgery, rosacea, RUQ colectomy, colon cancer, right leg fracture, right breast lumpectomy, and urinary incontinence. She arrived at the ED for left hip pain that began Tuesday (3 days ago). Once in the ED a CT was performed that confirmed a left trochanter fracture. Ortho surgery was consulted for intertrochanteric fracture without a recollection of a recent fall or injury. She will be admitted by the hospitalist service, cleared for surgery and plan for repair in the AM. - CONSULTS | PROCEDURES Consultations: Dr. Topete, orthopedics - HOSPITAL COURSE Hospital Course: pt was admitted for left hip. The image study reveals left trochanter fracture. The orthopedics was consulted. pt had hip repaired by surgeon. Then pt had PT/ OT evaluation and treatment. Pt was doing well for ambulation walk, and her pain is well controlled. The orthopedics relief pt to be d/c to SNF for further evaluation and treatment. - ALLERGIES Allergies/Adverse Reactions: Allergies Allergy/AdvReac Type Severity Reaction Status Date / Time cephalexin monohydrate * Allergy Intermediate Hives Verified 08/29/13 12:55 [From Keflex] morphine AdvReac Diaphoresis Verified 04/03/13 14:38 Tetracyclines AdvReac Nausea Verified 04/03/13 14:38 adhesive Allergy Severe Rash Uncoded 04/03/13 14:38 - MEDICATIONS Home Medications: Ambulatory Orders Medication Instructions Recorded Confirmed Hydrochlorothiazide 25 mg PO DAILY 06/19/12 02/28/17 Levothyroxine Sodium [Levoxyl] 112 mcg PO QDAC 06/19/12 02/28/17 Multivitamin [Multi-Vitamin Daily] 1 each PO DAILY 06/19/12 02/28/17 amLODIPine [Norvasc] 7.5 mg PO DAILY 06/19/12 02/28/17 Calcium Carbonate/Vitamin D3 1 tab PO DAILY 02/28/17 02/28/17 [Calcium 500-Vit D3 200 Tablet] Acetaminophen [Tylenol] 650 mg PO Q6H PRN #20 tablet 03/03/17 Aspirin EC [Ecotrin] 325 mg PO BID #14 tablet 03/03/17 oxyCODONE [Roxicodone] 5 mg PO Q4H PRN #25 tablet 03/03/17 - PHYSICAL EXAM AT DISCHARGE General Appearance: positive: No acute distress, Alert. negative: Lethargic Eyes Bilateral: positive: No lid inflammation, Conjunctivae nml ENT: positive: ENT inspection nml, Pharynx nml, No signs of dehydration. negative: Purulent nasal drainage, Pharyngeal erythema, Oral lesions Neck: positive: Nml inspection, Thyroid nml, No JVD, Trachea midline. negative : Thyromegaly, Lymphadenopathy (R), Lymphadenopathy (L), Stiff neck, Carotid bruit, Swelling/bruising, Tracheal deviation Respiratory: positive: Chest non-tender, No respiratory distress, Breath sounds nml. negative: Wheezes, Rales, Rhonchi Cardiovascular: positive: Regular rate & rhythm, No murmur, No gallop. negative : Irregularly irregular, Extrasystoles, Tachycardia, Bradycardia, Systolic murmur, Diastolic murmur Peripheral Pulses: positive: 2+ Abdomen: positive: Non-tender, No organomegaly, Nml bowel sounds, No distention. negative: Tenderness, Guarding, Rebound Back: positive: Nml inspection. negative: CVA tenderness (R), CVA tenderness (L ) Skin: positive: Color nml, No rash, Warm, Dry. negative: Cyanosis, Diaphoresis , Pallor Extremities: positive: Non-tender, Full ROM, Nml appearance. negative: Calf tenderness, Joint swelling, Rancho's sign/cords Neurologic/Psychiatric: positive: Oriented x3, Sensation nml, Mood/affect nml. negative: Sensory loss, Facial droop, Slurred/abnml speech, Depressed mood/ affect - LABS Result Diagrams: 03/03/17 05:34 03/03/17 05:34 - FOLLOW UP Follow Up: pt is advised to see PCP in 3-4 days, continue PT/OT, and see orthopedics in two weeks, continue home meds with Aspirin 325 mg bid for one week, and pain meds as needed. - TIME SPENT Time Spent in Discharge (Minutes): 40"
== END 2017-03-03 14:36 | DRG 482 ==
LOC: ED 10:09 → MS2 13:43
PROVIDERS: ADMIT Nurse Practitioner; ATTEND Nurse Practitioner Gerontology
PROC: 0QS734Z Reposition Left Upper Femur with Internal Fixation Device, Percutaneous Approach (ICD-10-PCS; principal; 2017-03-01 07:30)
DX: M80.052A Age-related osteoporosis with current pathological fracture, left femur, initial encounter for fracture (principal); E03.9 Hypothyroidism, unspecified; I10 Essential (primary) hypertension; E78.00 Pure hypercholesterolemia, unspecified; E78.5 Hyperlipidemia, unspecified; L71.9 Rosacea, unspecified; R32 Unspecified urinary incontinence; H40.9 Unspecified glaucoma; Z85.3 Personal history of malignant neoplasm of breast; Z85.038 Personal history of other malignant neoplasm of large intestine; Z79.899 Other long term (current) drug therapy
CPT/HCPCS: 36415; 51702; 80053; 80061; 83036; 83690; 83721; 84443; 85014; 85018; 85025; 85610; 86850; 86900; 86901; 88307; 93005; 99281; 99283; 99284

== ENCOUNTER 2017-05-02 13:26 | Outpatient (CLI) | payer MEDICARE, BC ==
--- NOTE | 2017-05-03 15:23 | DEXA Report ---
DEXA SCAN: 05/02/2017 CLINICAL INDICATION: Postmenopausal. TECHNIQUE: Dual energy x-ray absorptiometry (DXA) was performed on a [employer] system. Regions measured are the AP spine, femoral neck, and, if needed, forearm. COMPARISON: None. In accordance with the International Society for Clinical Densitometry (ISCD) guidelines, data from previous exams may be reanalyzed using current recommendations and techniques. This is done to allow a more accurate basis for comparison with the current study. FINDINGS Data for the lumbar spine is as follows: REGION BMD (g/cm/cm) T-SCORE Z-SCORE L1 1.028 -0.9 0.4 L2 1.253 0.4 1.7 L3 1.420 1.8 3.1 L4 1.233 0.3 1.6 L1-L4 1.235 0.5 1.7 NOTE: All evaluable vertebrae are used for classification. Data for the hip is as follows: REGION BMD (g/cm/cm) T-SCORE Z-SCORE Neck 0.924 -0.8 0.7 TOTAL 0.882 -1.0 0.3 NOTE: The femoral neck or total proximal femur, whichever is lowest, is used for classification. IMPRESSION WHO CLASSIFICATION BASED ON THE INTERNATIONAL REFERENCE STANDARD IS NORMAL. FRACTURE RISK IS NOT INCREASED. RECOMMENDATION: Patients with diagnosis of osteoporosis or osteopenia should have regular bone mineral density assessment. For those eligible for Medicare, routine testing is allowed once every 2 years. Testing frequency can be increased for patients who have rapidly progressing disease or for those who are receiving medical therapy to restore bone mass. COMMENT World Health Organization (WHO) definitions for osteoporosis and osteopenia: NORMAL BMD: T-score at 1.0 or higher, fracture risk is low. OSTEOPENIA BMD: T-score between 1.0 and -2.5, fracture risk is increased. OSTEOPOROSIS BMD: T-score at 2.5 or lower, fracture risk high. National Osteoporosis Foundation recommends: 1. Obtain adequate dietary calcium (at least 1200 mg per day) and vitamin D (400 -800 international units per day). 2. Participate, as appropriate, in regular weightbearing and muscle- strengthening exercise. 3. Avoid tobacco use and reduce alcohol and caffeine intake. 4. For more detailed information see the website at www.NOF.org. TD: 05/02/2017 15:23 [facility]
== END 2017-05-02 13:27 | disposition home or self-care (01) ==
LOC: DI 13:26
PROVIDERS: ATTEND Physician Assistant Medical
DX: Z78.0 Asymptomatic menopausal state (principal)
CPT/HCPCS: 77080

== ENCOUNTER 2017-05-10 08:57 | Outpatient (CLI) | payer MEDICARE, BC ==
[2017-05-10 09:30] LABS: ALBUMIN 4.4 g/dL (3.2-5.5); ALBUMIN/GLOBULIN RATIO 1.5 (1.0-2.2); BILIRUBIN,TOTAL 0.7 mg/dL (0.2-1.0); CALCIUM 10.2 mg/dL (8.5-10.3); CREATININE 0.8 mg/dL (0.4-1.0); TOTAL PROTEIN 7.4 g/dL (6.7-8.2)
[2017-05-11 13:55] LABS: HEPATITIS C ANTIBODY NON-REACTIVE (NON-REACTIVE)
== END 2017-05-10 08:58 | disposition home or self-care (01) ==
LOC: LAB 08:57
PROVIDERS: ATTEND Physician Assistant Medical
DX: Z11.59 Encounter for screening for other viral diseases (principal); R79.89 Other specified abnormal findings of blood chemistry
CPT/HCPCS: 36415; 80053; 86803

== ENCOUNTER 2017-06-13 09:54 | Outpatient (CLI) | payer MEDICARE, BC ==
--- NOTE | 2017-06-13 17:14 | Nuclear Medicine Report ---
EXAM: BONE SCAN EXAM DATE: 06/13/2017 02:19 PM. CLINICAL HISTORY: HX OF BREAST Cancer, colon CANCER. COMPARISON: Left hip radiographs dated 04/27/2017. TECHNIQUE: Following the intravenous administration of 31 mCi of technetium 99m MDP and an appropriat e delay, a whole-body scan was performed in anterior and posterior projections. Site-specific spot vi ews of the region of interest were obtained in various projections. FINDINGS: Exam Quality: Normal overall osseous radiotracer uptake. Physiological tracer uptake in bilateral col lecting systems. Skull: There are several small lesions in the skull. Thorax: There are several lesions in the bilateral ribs and sternal lesions are also suspected. Pelvis: A few lesions are noted in the pelvic bones. Spine: Mildly heterogeneous activity in the spine. Extremities: There are several foci of increased uptake in the right femur. There is intensely increa sed uptake involving approximately the proximal half of the left femur. There are several small foci of increased uptake in the humeri and a small lesion in the right forearm. IMPRESSION: Multifocal skeletal metastatic disease. [facility] Referring Provider Line: [phone] SITE ID: [id number]
== END 2017-06-13 09:55 | disposition home or self-care (01) ==
LOC: DI 09:54
PROVIDERS: ATTEND Internal Medicine
DX: C79.51 Secondary malignant neoplasm of bone (principal); Z85.3 Personal history of malignant neoplasm of breast; Z85.038 Personal history of other malignant neoplasm of large intestine
CPT/HCPCS: 78306; A9503

== ENCOUNTER 2017-06-14 11:52 | Outpatient (CLI) | payer MEDICARE, BC ==
[2017-06-14] MEDS ORDERED: IOPAMIDOL-300 100 ML VIAL ONE (12:09)
[2017-06-14] MEDS ORDERED: IOPAMIDOL-300 50 ML VIAL ONE (12:09)
[2017-06-14] MEDS ORDERED: IOPAMIDOL-300 50 ML VIAL PO ONE (12:48)
[2017-06-14] MEDS ORDERED: IOPAMIDOL-300 100 ML VIAL IVP ONE (12:48)
--- NOTE | 2017-06-14 14:41 | CT Report ---
CT ABDOMEN WITH CONTRAST: 06/14/2017 CLINICAL INDICATION: History of breast cancer and colon cancer. TECHNIQUE: Axial CT images of the abdomen were obtained with 100 mL Isovue-300 intravenously as well as oral contrast. FINDINGS: The liver, spleen, pancreas, kidneys and adrenal glands appear unremarkable. The gallbladder is not dilated. No bowel dilatation, free gas, or free fluid is seen. No abdominal adenopathy is identified. Osseous structures demonstrate widespread sclerotic lesions, compatible with osseous metastatic disease. IMPRESSION: OSSEOUS METASTATIC DISEASE. CT DOSE REDUCTION STATEMENT In accordance with CT protocol optimization, one or more of the following dose reduction techniques were utilized for this exam: automated exposure control, adjustment of mA and/or KV based on patient size, or use of iterative reconstructive technique. TD: 06/14/2017 14:40
--- NOTE | 2017-06-14 14:44 | CT Report ---
CT CHEST WITH CONTRAST: 06/14/2017 CLINICAL INDICATION: History of breast cancer, colon cancer. TECHNIQUE: Axial CT images of the chest were obtained with 100 mL Isovue-300 intravenously. COMPARISON: No previous CT is available for comparison. FINDINGS: The heart and the great vessels demonstrate mild atherosclerotic calcification. No hilar or mediastinal lymphadenopathy is present. The lungs demonstrate basilar atelectasis. No suspicious pulmonary nodule or mass lesion is appreciated. No effusion or pneumothorax is present. Postoperative changes are noted in the right axilla. Osseous structures demonstrate widespread sclerotic lesions, compatible with osseous metastatic disease. IMPRESSION: OSSEOUS METASTATIC DISEASE. CT DOSE REDUCTION STATEMENT In accordance with CT protocol optimization, one or more of the following dose reduction techniques were utilized for this exam: automated exposure control, adjustment of mA and/or KV based on patient size, or use of iterative reconstructive technique. TD: 06/14/2017 14:43 MTDD
== END 2017-06-14 11:53 | disposition home or self-care (01) ==
LOC: DI 11:52
PROVIDERS: ATTEND Internal Medicine
DX: Z85.3 Personal history of malignant neoplasm of breast (principal); C79.51 Secondary malignant neoplasm of bone
CPT/HCPCS: 71260; 74160; Q9967

== ENCOUNTER 2018-03-27 12:14 | Outpatient (CLI) | payer MEDICARE, BC ==
[2018-03-27] MEDS ORDERED: IOVERSOL 320 50 ML VIAL ONE (12:31)
[2018-03-27] MEDS ORDERED: IOVERSOL 320 100 ML VIAL IVP ONE ×2 (12:31→15:52)
[2018-03-27] MEDS ORDERED: IOVERSOL 320 50 ML VIAL PO ONE (15:52)
--- NOTE | 2018-03-28 10:46 | CT Report ---
Reason: COLON CA, H/O BREAST CA Procedure Date: 03/27/2018 Accession Number: [id number] / [id number] Procedure: CT - Abdomen/Pelvis W CPT Code: FULL RESULT: EXAM: CT CHEST, ABDOMEN AND PELVIS EXAM DATE: 03/27/2018 01:51 PM. CLINICAL HISTORY: Colon CA, history of breast CA. COMPARISONS: CHEST W/ 06/14/2017 12:36 PM ABDOMEN W06/14/2017 12:36 PM CHEST W/ 03/27/2018 1:49 PM. TECHNIQUE: Routine helical CT imaging was performed through the chest, abdomen, and pelvis. IV contrast: OPTI 320 90mL. Enteric contrast: No. Reconstructions: Coronal and sagittal. In accordance with CT protocol optimization, one or more of the following dose reduction techniques were utilized for this exam: automated exposure control, adjustment of mA and/or KV based on patient size, or use of iterative reconstructive technique. FINDINGS: Lungs/Pleura: A small amount of scarring is again seen in the right middle lobe and posterior left lower lobe. No suspicious nodules, bronchial thickening, consolidation, or edema. Pulmonary vasculature is normal. No effusions or pneumothorax. Mediastinum: No adenopathy or masses. Coronary atherosclerotic disease is similar to prior. Musculoskeletal Thorax: Postsurgical changes in right axilla and breast are stable. No axillary or supraclavicular lymphadenopathy is detected. Liver: Normal. Gallbladder/Bile Ducts: Unremarkable. Spleen: Normal. Pancreas: Normal. Adrenal Glands: Normal. Kidneys: Normal. No masses or hydronephrosis. Peritoneal Cavity/Bowel: The patient is status post partial colectomy. No lymphadenopathy or free fluid, free air, or bowel obstruction. Pelvic Organs: There is no pelvic lymphadenopathy. Fibroid uterus. Vasculature: No aneurysms or other significant abnormality. Bones: Interval progression of globally sclerotic visualized axial and appendicular skeleton, possibly posttreatment/reactive change superimposed on previously seen osseous metastatic disease. Other: None. IMPRESSION: No evidence of visceral metastatic disease to chest, abdomen, or pelvis. Interval increase in osseous sclerosis, possibly treatment related. Correlate to timing of therapy and consider bone scan if clinically indicated. [facility]
== END 2018-03-27 12:15 | disposition home or self-care (01) ==
LOC: DI 12:14
PROVIDERS: ATTEND Internal Medicine
DX: C79.51 Secondary malignant neoplasm of bone (principal); Z85.038 Personal history of other malignant neoplasm of large intestine; Z85.3 Personal history of malignant neoplasm of breast
CPT/HCPCS: 71260; 74177; Q9967

== ENCOUNTER 2018-03-30 11:46 | Outpatient (CLI) | payer MEDICARE, BC ==
--- NOTE | 2018-03-31 10:11 | Nuclear Medicine Report ---
Reason: COLON CA, H/O BREAST CA Procedure Date: 03/30/2018 Accession Number: [id number] / [id number] Procedure: NM - Bone Whole Body CPT Code: FULL RESULT: EXAM: BONE SCAN EXAM DATE: 03/30/2018 03:49 PM. CLINICAL HISTORY: COLON CA, H/O BREAST CA. COMPARISON: BONE SCAN 06/13/2017 1:13 PM ABDOMEN/PELVIS W/ 03/27/2018 1:49 PM CHEST W/ 03/27/2018 1:49 PM CHEST W/ 06/14/2017 12:36 PM ABDOMEN W/ 06/14/2017 12:36 PM. TECHNIQUE: Following the intravenous administration of 32.8 mCi of technetium 99m MDP and an appropriate delay, a whole-body scan was performed in anterior and posterior projections. Site-specific spot views of the region of interest were obtained in various projections. FINDINGS: Exam Quality: Physiological tracer uptake in bilateral collecting systems. Skull: There is diffuse uptake, the previously noted discrete lesions are not appreciated. Thorax: There are scattered foci of increased uptake in bilateral ribs and in bilateral scapulae. Some appear new or more intense compared to the prior bone scan. A previously noted lesion in the left anterior third rib is not evident on this study. A lesion in the left posterior 11th rib appears new. There is diffusely increased sternal uptake. Pelvis: There is a small focus of uptake in the superior right iliac wing which appears new. The previously noted lesion in the left inferior pubic ramus appears less intense compared to prior. Persistent increased uptake in left greater than right hips. Slightly greater, heterogeneous uptake around the sacroiliac joint regions. Spine: Increased uptake in L3 compared to the prior exam. Extremities: Persistent abnormal increased uptake in the femurs, mostly less intense compared to prior bone scan. There is a new or more intense small intense focus in the medial distal right femur. There are subtle lesions in the humeri, probably similar to prior. IMPRESSION: Compared to the prior bone scan, mixed response with some metastatic lesions appearing more intense, some lesions less intense, and a few new lesions. [facility]
== END 2018-03-30 11:47 | disposition home or self-care (01) ==
LOC: DI 11:46
PROVIDERS: ATTEND Internal Medicine
DX: C79.51 Secondary malignant neoplasm of bone (principal); Z85.038 Personal history of other malignant neoplasm of large intestine; Z85.3 Personal history of malignant neoplasm of breast
CPT/HCPCS: 78306

== ENCOUNTER 2018-05-23 10:29 | Outpatient (CLI) | payer MEDICARE, BC ==
[2018-05-23 11:50] LABS: HB2 TOTAL 14.1 g/dL; HEMOGLOBIN A1C 0.55 g/dL; HEMOGLOBIN A1C % 5.7 % (4.6-6.2)
== END 2018-05-23 10:30 | disposition home or self-care (01) ==
LOC: LAB 10:29
PROVIDERS: ATTEND Internal Medicine
DX: I10 Essential (primary) hypertension (principal); R73.9 Hyperglycemia, unspecified; E03.9 Hypothyroidism, unspecified
CPT/HCPCS: 83036; 84443

== ENCOUNTER 2018-10-03 09:41 | Outpatient (CLI) | payer MEDICARE, BC ==
[2018-10-03] MEDS ORDERED: IOVERSOL 320 100 ML VIAL IVP ONE ×2 (09:57→14:24)
[2018-10-03] MEDS ORDERED: IOVERSOL 320 50 ML VIAL ONE (09:57)
[2018-10-03] MEDS ORDERED: IOVERSOL 320 50 ML VIAL PO ONE (14:24)
--- NOTE | 2018-10-04 12:37 | CT Report ---
Reason: METASTIC BREAST CANCER, HISTORY OF COLON CANCER Procedure Date: 10/03/2018 Accession Number: [id number] / [id number] Procedure: CT - Abdomen/Pelvis W CPT Code: FULL RESULT: EXAM: CT ABDOMEN AND PELVIS EXAM DATE: 10/03/2018 11:37 AM. CLINICAL HISTORY: METASTIC BREAST CANCER, HISTORY OF COLON CANCER. COMPARISONS: ABDOMEN/PELVIS W/ 03/27/2018 1:49 PM. TECHNIQUE: Routine helical CT imaging was performed through the abdomen and pelvis. IV contrast: OPTI 320 100ML. Enteric contrast: No. Reconstructions: Coronal and sagittal. In accordance with CT protocol optimization, one or more of the following dose reduction techniques were utilized for this exam: automated exposure control, adjustment of mA and/or KV based on patient size, or use of iterative reconstructive technique. FINDINGS: Lung Bases: Unremarkable. Liver: Normal. No masses. Gallbladder/Bile Ducts: Unremarkable. Spleen: Normal. Pancreas: Normal. Adrenal Glands: Normal. Kidneys: Normal. No masses or hydronephrosis. Peritoneal Cavity/Bowel: Diverticulosis without diverticulitis. Obstruction process associated with the bowel. No free air or fluid or pelvis. The appendix is not visualized. Pelvic Organs: Normal. The bladder and visualized pelvic organs are within normal limits. Vasculature: No aneurysms or other significant abnormality. Bones: Diffuse sclerotic changes throughout the visualized skeleton redemonstrated and similar. Nondisplaced pathologic fracture of the right ramus tubercle. Possible nondisplaced fracture along the left side of the T11 vertebral body. These are new from the prior examination. Other: None. IMPRESSION: 1. Diffuse sclerotic changes throughout the visualized skeleton redemonstrated and similar. Nondisplaced pathologic fracture of the right ramus tubercle. Possible nondisplaced fracture along the left side of the T11 vertebral body. These are new from the prior examination. 2. No mass or lymphadenopathy in the abdomen or pelvis. [facility]
--- NOTE | 2018-10-04 12:43 | CT Report ---
Reason: METASTIC BREAST CANCER, HISTORY OF COLON CANCER Procedure Date: 10/03/2018 Accession Number: [id number] / [id number] Procedure: CT - CHEST W CPT Code: FULL RESULT: EXAM: CT CHEST EXAM DATE: 10/03/2018 11:37 AM. CLINICAL HISTORY: METASTIC BREAST CANCER, HISTORY OF COLON CANCER. COMPARISONS: ABDOMEN/PELVIS W/ 03/27/2018 1:49 PM CHEST W03/27/2018 1:49 PM. TECHNIQUE: Routine helical CT imaging was performed through the chest. IV contrast: 100 mL of Optiray 320. Reconstructions: Coronal and sagittal. In accordance with CT protocol optimization, one or more of the following dose reduction techniques were utilized for this exam: automated exposure control, adjustment of mA and/or KV based on patient size, or use of iterative reconstructive technique. FINDINGS: Lungs/Pleura: Atelectatic changes versus scarring in the right upper lobe, right lower lobe and lingula which is new from the prior examination. No pulmonary mass or nodule identified. No lymphadenopathy. Mediastinum: Normal. No adenopathy or masses. The heart and great vessels are normal. Bones: Diffuse sclerotic changes throughout the visualized skeleton with possible nondisplaced pathologic fracture of the left side of the T11 vertebral body. Visualized Abdomen: Unremarkable. Other: None. IMPRESSION: 1. Atelectatic changes versus scarring in the right upper lobe, right lower lobe and lingula which is new from the prior examination. 2. No pulmonary mass or nodule identified. No lymphadenopathy. 3. Diffuse sclerotic changes throughout the visualized skeleton with possible nondisplaced pathologic fracture of the left side of the T11 vertebral body. This is new from the prior examination. RADIA
--- NOTE | 2018-10-04 13:45 | Nuclear Medicine Report ---
Reason: METASTIC BREAST CANCER, HISTORY OF COLON CANCER Procedure Date: 10/03/2018 Accession Number: [id number] / [id number] Procedure: NM - Bone Whole Body CPT Code: FULL RESULT: EXAM: BONE SCAN EXAM DATE: 10/03/2018 02:33 PM. CLINICAL HISTORY: Metastatic breast cancer, history of colon cancer. COMPARISON: BONE SCAN 03/30/2018 2:56 PM ABDOMEN/PELVIS W/ 10/03/2018 11:30 AM CHEST W/ 10/03/2018 11:30 AM ABDOMEN/PELVIS W/ 03/27/2018 1:49 PM CHEST W/ 03/27/2018 1:49 PM BONE SCAN 06/13/2017 1:13 PM. TECHNIQUE: Following the intravenous administration of 31.3 mCi of technetium 99m MDP and an appropriate delay, a whole-body scan was performed in anterior and posterior projections. Site-specific spot views of the region of interest were obtained in various projections. FINDINGS: Exam Quality: There is very faint soft tissue and renal uptake. Skull: There are approximately 3 or 4 skull lesions, appearing slightly more prominent compared to prior. Thorax: There are bilateral rib lesions which appear similar to prior. Heterogeneous uptake in the sternum, similar to prior. There are bilateral scapular lesions, similar to prior. Pelvis: Lesions in the pelvic bones and proximal femurs appear similar to prior. Spine: Mildly heterogeneous uptake in the spine, similar to prior. Extremities: Subtle foci of increased uptake in femurs and humeri, similar to prior. Focus of intense uptake in the medial distal right femur, appears more intense compared to prior. IMPRESSION: 1. Persistent multifocal, diffuse skeletal metastatic disease. 2. Compared to the prior bone scan, a few lesions appear slightly more conspicuous. Most lesions appear relatively stable. RADIA
== END 2018-10-03 09:42 | disposition home or self-care (01) ==
LOC: DI 09:41
PROVIDERS: ATTEND Internal Medicine Hematology & Oncology
DX: C79.51 Secondary malignant neoplasm of bone (principal); Z85.3 Personal history of malignant neoplasm of breast; Z85.038 Personal history of other malignant neoplasm of large intestine; M84.454A Pathological fracture, pelvis, initial encounter for fracture
CPT/HCPCS: 71260; 74177; 78306; Q9967

== ENCOUNTER 2019-01-10 10:58 | Outpatient (CLI) | payer MEDICARE, BC ==
--- NOTE | 2019-01-11 16:07 | CT Report ---
Reason: CA IN LUNG Procedure Date: 01/10/2019 Accession Number: [id number] / [id number] Procedure: CT - CHEST WO CPT Code: Addended Final Report FULL RESULT: EXAM: CT CHEST EXAM DATE: 01/10/2019 11:25 AM. CLINICAL HISTORY: Metastatic breast cancer. History of colon cancer. COMPARISONS: ABDOMEN/PELVIS W10/03/2018 11:30 AM CHEST 10/03/2018 11:30 AM CHEST 03/27/2018 1:49 PM CHEST W06/14/2017 12:36 PM. TECHNIQUE: Routine helical CT imaging was performed through the chest. IV contrast: None. Reconstructions: Coronal and sagittal. In accordance with CT protocol optimization, one or more of the following dose reduction techniques were utilized for this exam: automated exposure control, adjustment of mA and/or KV based on patient size, or use of iterative reconstructive technique. FINDINGS: Thyroid Gland: Atrophic. Lungs/Pleura: Bronchiectasis and subpleural fibrosis in the anterior right upper lobe compatible with postradiation treatment change. Scattered subpleural scarring in the bilateral apices, posterior right lower lobe, and bilateral basis, as before. No pulmonary nodule or mass. No focal infiltrate or pleural effusion. Heart and Great Vessels: Heart size is normal. No pericardial effusion. Extensive atherosclerotic calcifications in the left anterior descending coronary artery. Trace atherosclerotic calcifications within the aorta. No aortic aneurysm. Thoracic Lymph Nodes: No adenopathy. Visualized Upper Abdomen: Unremarkable. Bones: Extensive sclerotic osseous metastasis, similar appearance to prior exam. Healed fracture deformity of the left posterior 11th rib. Other: Surgical clips in the right breast. IMPRESSION: 1. Post radiation fibrosis in the anterior right upper lobe, as before. 2. Diffuse sclerotic osseous metastatic disease, as before. 3. No pulmonary nodule or mass. No adenopathy. RADIA ADDENDUM: 01/11/19 17:19 Stable ascending aortic ectasia measuring 4.1 cm.
== END 2019-01-10 10:59 | disposition home or self-care (01) ==
LOC: DI 10:58
PROVIDERS: ATTEND Internal Medicine Hematology & Oncology
DX: Z09 Encounter for follow-up examination after completed treatment for conditions other than malignant neoplasm (principal); Z85.3 Personal history of malignant neoplasm of breast; Z85.038 Personal history of other malignant neoplasm of large intestine; J70.1 Chronic and other pulmonary manifestations due to radiation; C79.51 Secondary malignant neoplasm of bone
CPT/HCPCS: 71250

== ENCOUNTER 2019-07-06 11:59 | Outpatient (CLI) | payer MEDICARE, BC ==
[2019-07-06 12:43] LABS: THYROID STIMULATING HORMONE 0.88 uIU/mL (0.34-5.60)
[2019-07-06 12:45] LABS: FREE T3 3.07 pg/mL (2.5-3.9)
[2019-07-06 12:46] LABS: FREE T4 (FREE THYROXINE) 0.91 ng/dL (0.58-1.64)
== END 2019-07-06 12:00 | disposition home or self-care (01) ==
LOC: LAB 11:59
PROVIDERS: ATTEND Family Medicine
DX: E03.9 Hypothyroidism, unspecified (principal)
CPT/HCPCS: 84439; 84443; 84481

== ENCOUNTER 2019-08-08 13:08 | Outpatient (CLI) | payer MEDICARE, BC ==
--- NOTE | 2019-08-08 15:23 | XRAY Report ---
PROCEDURE: Hip w/Pelvis 2-3V LT INDICATIONS: HX OF FX AND PINNING, INCREASED PX TECHNIQUE: AP pelvis with lateral view(s) of the left hip(s). COMPARISON: X-ray femur 08/08/2019, x-ray hip 03/30/2017, bone scan 04/28/2019. FINDINGS: Bones: No acute fractures or dislocations. Pelvic ring appears intact. No suspicious bony lesions. Pin fixation of the left femur is present. Hardware is intact without periprosthetic loosening. Ther e is an appearance of an old left inferior pubic ramus fracture. The bones have an overall appearance of increased sclerosis. Moderate degenerative changes within the right hip. Soft tissues: The visualized bowel gas pattern is normal. No suspicious soft tissue calcifications. IMPRESSION: 1. Stable appearance of left femoral pin fixation. 2. Moderate degenerative changes within the right hip. 3. Appearance of increased sclerosis within the pelvic bones, femur and lower lumbar spine most consi stent with osseous metastatic disease. Reviewed by: Roxane Gayle MD on 08/08/2019 3:22 PM PDT Approved by: Roxane Gayle MD on 08/08/2019 3:22 PM PDT Station ID: [id number]
--- NOTE | 2019-08-08 15:24 | XRAY Report ---
PROCEDURE: Femur 2V LT INDICATIONS: HX OF FX AND PINNING, INCREASED PX TECHNIQUE: 2 views of the femur were acquired. COMPARISON: X-ray hip 08/08/2019, bone scan 03/30/2019 FINDINGS: Bones: No fractures or dislocations. Severe medial and patellofemoral compartment narrowing. Partial visualization of fixation bruna is noted within the superior femur. Soft tissues: No suspicious soft tissue calcifications or masses. IMPRESSION: Degenerative changes as above. Reviewed by: Roxane Gayle MD on 08/08/2019 3:23 PM PDT Approved by: Roxane Gayle MD on 08/08/2019 3:23 PM PDT Station ID: [id number]
== END 2019-08-08 13:09 | disposition home or self-care (01) ==
LOC: DI 13:08
PROVIDERS: ATTEND Internal Medicine Hematology & Oncology
DX: S72.92XD Unspecified fracture of left femur, subsequent encounter for closed fracture with routine healing (principal); M16.12 Unilateral primary osteoarthritis, left hip; M85.88 Other specified disorders of bone density and structure, other site; M22.2X2 Patellofemoral disorders, left knee

== ENCOUNTER 2019-12-21 11:49 | Outpatient (CLI) | payer MEDICARE, BC ==
--- NOTE | 2019-12-22 16:10 | CONSULTATION NOTE ---
Palliative Care Consultation - Referral Referring Provider: Dr. Asael Bergeron Time of Visit: [id number] Referral setting: [facility] [place] Reason: Pain of neoplastic origin/Stage Breast Ca with bone mets - Information Sources Records reviewed: Previous records reviewed History/Review of Systems obtained from: Patient, Family () Exam limitations: No limitations - History of Present Illness Brief History of Present Illness: This is a young 74-year-old woman who was diagnosed with stage II breast cancer T2N0 in 2007. She had a right sided central lesion, status post lumpectomy, and radiation. She was originally started on Arimidex, from 8-05/21 but was discontinued secondary to osteopenia, and finished out on tamoxifen until 2012. She sustained a left trochanter fracture in February 2017, including pelvic fracture with no fall. When she saw the oncologist in June 2017, she underwent a bone scan, and was shown to have multifocal bone lesions. Because she had a history of colon cancer, she did receive a bone biopsy which did show it as breast cancer. Patient has had left hip pain due to metastatic disease, recent plain x-ray did not show a new fracture but did show a hairline acetabular misalignment on CT, has been receiving Zometa infusion every 3 months, and has had a pending consideration for radiation therapy for pain control. She is was originally on letrozole since 07/2017, with original CA15-3 at 3540 with good response. She had Ibrance added 03/2018 for rising tumor marker. She has been on Faslodex/Ibrance since 04/27/2019 for rising tumor marker with good response, with leukopenia and anemia due to chemotherapeutic side effects. She has tolerated it fairly well, but with recent slight rise in CA 15-3, may consider next line of Afinitor and exemestane per her understanding. Patient also has a history of colon cancer, stage II status post surgical resection. She did receive follow-up 5-FU for adjuvant treatment, and tolerated this very poorly with severe mucositis and severe side effects. Her last colonscopy was 2016 for survellience. Patient presents with low symptom burden, does have pain in her right thigh/hip/back area. This does fluctuate in nature, worsens with weightbearing. She has been using intermittent ibuprofen, acetaminophen does not touch it. She does though walk with a limp, and is considering follow-up with radiation. She and her are very much planners, are trying to plan for the future regarding her declining mobility, discussed what information would be helpful, she very much would like more of an idea prognosis, as well as things to expect with decline to plan for for the future. Palliative care to provide support regarding symptom management, anticipatory guidance, and advanced care planning. 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 Support System: Patient and her have been over 50 years, they have 2 daughters, and 2 grandchildren. 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 They have been looking at the house, considering moving in the future, their big concern rightfully so, is their living space is on the top floor as far as bedroom and bath. She has had experience with hospice and end-of-life with her dad who had prostate cancer. She likes to knit, spin, and read. I do not identify any financial stressors. They are very happy with their relationship with Dr. SAMEER RICE. Family History - Family History Family History: Mother: , CVA/TIA, Father: , Cancer, [place], Sister: Alive and Well Medications/Allergies - Medications Home Medications: Ambulatory Orders Medication Instructions Recorded Confirmed Hydrochlorothiazide 12.5 mg PO DAILY 06/19/12 12/10/19 Levothyroxine Sodium [Levoxyl] 112 mcg PO QDAC 06/19/12 12/10/19 Multivitamin [Multi-Vitamin Daily] 1 each PO DAILY 06/19/12 12/10/19 amLODIPine [Norvasc] 7.5 mg PO DAILY 06/19/12 12/10/19 Palbociclib [Ibrance] 100 mg PO DAILY 05/01/18 12/10/19 - Allergies Allergies/Adverse Reactions: Allergies Allergy/AdvReac Type Severity Reaction Status Date / Time cephalexin monohydrate * Allergy Intermediate Hives Verified 12/10/19 09:30 [From Keflex] morphine AdvReac Diaphoresis Verified 12/10/19 09:30 Tetracyclines AdvReac Nausea Verified 12/10/19 09:30 adhesive Allergy Severe Rash Uncoded 12/10/19 09:30 Review of Systems - Constitutional Constitutional: reports: Fatigue (mild), Weight stable. denies: Fever, Chills - Eyes Eyes: reports: Vision loss, Corrective lenses - Cardiovascular Cardiovascular: reports: Decr. exercise tolerance - Respiratory Respiratory: denies: SOB at rest - Gastrointestinal Gastrointestinal: reports: Good appetite. denies: Constipation, Nausea - Musculoskeletal Musculoskeletal: reports: Back pain, Muscle aches, Limited range of motion (left hip), Joint pain (left hip), Assistive devices (uses cane or crutch with brace for balance) - Integumentary Integumentary: reports: Dryness - Neurological Neurological: reports: Focal weakness (LE), Abnormal gait - Psychiatric Psychiatric: reports: Depression (mild), Anxiety - Endocrine Endocrine: reports: Hypothyroidism - Hematologic/Lymphatic Hematologic/Lymph: Anemia - All Other Systems All Other Systems: reports: Reviewed and negative Physical Exam - Physical Exam General Appearance: positive: No acute distress, Alert Eyes Bilateral: positive: Normal inspection ENT: positive: No signs of dehydration Neck: positive: Trachea midline Cardiovascular: positive: Regular rate & rhythm Respiratory: positive: No respiratory distress, Breath sounds nml Abdomen: positive: Soft, Obese Skin: positive: Pallor, Dryness Extremities: positive: Pedal edema (trac) Neurologic/Psychiatric: positive: Oriented x3, Mood/affect nml, Flat affect Palliative Care - POLST Patient has POLST: No Pain: Pain unchanged, Location (left hip/femur area; lower back;), Severity (2/10), Pattern (fluctuates) Tiredness/Fatigue: None Drowsiness/Sedation: None Nausea: None Anorexia: None Dyspnea: None Depression: Mild (1-3) Anxiety: None, Comment (does present with anxiety about the future) Feelings of wellbeing/Perceived Quality of Life: Good, Acceptable Sleep: Sleeps well Constipation: No Performance Status: Patient is ambulatory, is able at this point in time to manage the stairs at her home. She does have a "limp" for her getting in the shower, but so far is managing. Has not had any falls. She is still able to drive. Would put her at a PPS of 80% - Palliative Care Discussion: Patient and are planners, have been thinking about her declining mobility and how to manage in their current home. They are also looking to the future for moving to a graduated care planning such as [facility]. They both very much like the home feeling some pressure is a look around of the lack of availability both of housing options but also concern for caregiving support in the future. When asked about understanding of her illness, they do not have a sense of prognosis, I suspect it is years unless has a critical event or develops other mets, will reach out to oncology to help with defining in formation related to prognosis. Patient has been offered radiation for pain control, somewhat anxious as she has her father's experience with prostate cancer to compare this to, did review though with current approaches, experience would be significantly different, and bone mets is often a short course with little morbidity. Provided some counseling regarding the continuum of care regarding caregiving, information given regarding continuum of care of assisted living, as well as role of palliative care versus hospice care. Results - Lab Results Lab results reviewed: Yes Impression and Recommendations - Palliative Care Impression: This is a young 74-year-old woman with metastatic stage IV breast cancer with mets to the bone. She does present with pain in her left hip, suspect this is multifactorial given previous fracture, osteoarthritis, and bony mets. Palliative care meeting with patient and to initiate rapport, provide some anticipatory guidance, and further explore advanced care planning. Recommendations/Counseling Done: 1. Left hip/leg pain. Most likely multifactorial in origin, with osteoarthritis, history of hip fracture and ORIF, as well has metastatic bone disease. Patient currently receiving Zometa every 3 months. Pain fluctuates in nature, does use intermittent ibuprofen, though has been cautioned regarding kidney function. Counseling provided regarding the role of radiation for pain control, both benefits, and limited morbidity. Patient wanting to avoid medications, but did order tramadol 50 mg 1 tab every 6 hours as needed, if pain escalates. Discussed need for having "tool" into a box if worsens. Concern regarding stress of uncontrolled pain as well. 2. Anxiety. Patient and very much "planners". Will benefit from having further information regarding prognosis. Counseling provided regarding the continuum of care, as well as possible expected needs in the future. We will continue to in the setting of rapport, help with anticipatory guidance. 3. Advanced care planning. They are looking to the future, regarding needs, I do not identify any financial stressors but some concern regarding her impending decline. Patient is quite independent functionally at this point in time, low symptom burden, as well as goal to maintain independence. Will revisit advanced care planning documents at next visit. Will be helpful to have prognositic information to help them with their concerns. Time Spent: 75 minutes with greater than 50% of this done in counseling regarding pain and symptom management, anticipatory guidance, role of palliative care, and continuum of care and serious illness.
== END 2019-12-21 11:50 | disposition home or self-care (01) ==
LOC: PC 11:49
PROVIDERS: ATTEND Nurse Practitioner Adult Health
DX: Z51.5 Encounter for palliative care (principal); G89.3 Neoplasm related pain (acute) (chronic); M16.12 Unilateral primary osteoarthritis, left hip; Z87.39 Personal history of other diseases of the musculoskeletal system and connective tissue; F41.9 Anxiety disorder, unspecified; C79.51 Secondary malignant neoplasm of bone; C50.111 Malignant neoplasm of central portion of right female breast; Z79.818 Long term (current) use of other agents affecting estrogen receptors and estrogen levels; Z79.899 Other long term (current) drug therapy; Z79.83 Long term (current) use of bisphosphonates; Z85.038 Personal history of other malignant neoplasm of large intestine; Z74.09 Other reduced mobility
CPT/HCPCS: 99345

== ENCOUNTER 2020-03-17 15:00 | Outpatient (CLI) | payer MEDICARE, BC ==
--- NOTE | 2020-03-17 17:58 | CONSULTATION NOTE ---
Palliative Care Follow Up - Referral Referring Provider: Dr. Asael Bergeron Time of Visit: [id number] [place] setting[place] [facility] [place] Reason: Anxiety/Met Breast CA to bone - Information Sources Records reviewed: Previous records reviewed History/Review of Systems obtained from: Patient Exam limitations: No limitations - History of Present Illness Update Brief HPI Update: This is a anxious 74-year-old woman who was diagnosed with stage IV right breast cancer with diffuse bony mets since 06/2017. Currently so far has no visceral organ involvement, and has been maintained on Faslodex/Ibrance since 04/2019. She has recently completed radiation to left hip, right hip and lower spine region. 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 She has had some intermittent nausea and vomiting, including over weekend, does seem to have been triggered by zach valdesing orange juice. Her starting to do a little bit better, has had some weight loss, she is currently 158.2. It does appear most of her anxiety remains still focused on her prognosis, she is quite distressed at her marker CEA 153 antigen floating upwards again, 03/14/20 to 97.5. It had decreased with radiation on 107 to 64.3. 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 Though currently she is doing quite well, she is ambulatory with a cane, she does need some frequent rest periods because increased standing does cause left femur counseling provided regarding pain management, safety, and ongoing review of chronic pain regimen at pin site. She does use heating pad with relief. She is still able to manage her ADLs, she has very low symptom burden, but was somewhat distressed with her side effects from her radiation. Past Medical History: History of stage II right breast cancer 2017, lumpectomy sentinel node biopsy, tamoxifen x5 years till 2012, right colectomy and adjuvant therapy with 5 if you for stage II colon cancer 2013, pelvic fracture, left hip fracture with surgical fixation, hypertension, high cholesterol, hypothyroidism, glaucoma, rosacea,cataract surgery Social History - Living Situation Living arrangement: At home Living Situation: With spouse/s.o. Support System: Patient and her have been over 50 years, he is an audio engineer type as well. They have 2 daughters and 2 grandchildren. 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 She remains very focused on having a plan for her demise, this does appear to have caused some tension between the 2 of them. She very much likes her house, view, and her current quality of life. Medications/Allergies - Medications Home Medications: Ambulatory Orders Medication Instructions Recorded Confirmed Levothyroxine Sodium [Levoxyl] 112 mcg PO QDAC 06/19/12 03/18/20 Multivitamin [Multi-Vitamin Daily] 1 each PO DAILY 06/19/12 03/18/20 amLODIPine [Norvasc] 7.5 mg PO DAILY 06/19/12 03/18/20 Palbociclib [Ibrance] 100 mg PO DAILY 05/01/18 03/18/20 Ibuprofen [Motrin Ib] 200 mg PO Q6HR PRN 03/18/20 03/18/20 Lactobacillus Acidophilus 1 tab PO DAILY 03/18/20 03/18/20 [Probiotic Acidophilus] traMADol [Ultram] 50 mg PO Q6HR PRN 03/18/20 03/18/20 - Allergies Allergies/Adverse Reactions: Allergies Allergy/AdvReac Type Severity Reaction Status Date / Time cephalexin monohydrate * Allergy Intermediate Hives Verified 03/17/20 14:55 [From Keflex] morphine AdvReac Diaphoresis Verified 03/17/20 14:55 Tetracyclines AdvReac Nausea Verified 03/17/20 14:55 adhesive Allergy Severe Rash Uncoded 03/17/20 14:55 Review of Systems - Constitutional Constitutional: reports: Fatigue (mild), Weight stable (154.2), Other (she has gotten the first of her Covid shots). denies: Fever, Chills - Eyes Eyes: reports: Vision loss, Corrective lenses - Cardiovascular Cardiovascular: reports: Decr. exercise tolerance - Respiratory Respiratory: denies: SOB at rest - Gastrointestinal Gastrointestinal: reports: Constipation, Diarrhea, Nausea, Vomiting, Good appetite - Musculoskeletal Musculoskeletal: reports: Back pain, Muscle aches, Limited range of motion (left hip), Assistive devices (uses cane or crutch with brace for balance) - Integumentary Integumentary: reports: Dryness - Neurological Neurological: reports: Focal weakness (LE), Abnormal gait - Psychiatric Psychiatric: reports: Depression (mild), Anxiety (moderate) - Endocrine Endocrine: reports: Hypothyroidism - Hematologic/Lymphatic Hematologic/Lymph: reports: Anemia (11.9) - All Other Systems All Other Systems: reports: Reviewed and negative Physical Exam - Physical Exam General Appearance: positive: No acute distress, Alert, Anxious Eyes Bilateral: positive: Normal inspection ENT: positive: No signs of dehydration Neck: positive: Trachea midline Respiratory: positive: No respiratory distress Abdomen: positive: Soft Skin: positive: Pallor, Dryness Neurologic/Psychiatric: positive: Oriented x3, Mood/affect nml, Flat affect Palliative Care - POLST Patient has POLST: No Pain: Pain improved, Location (persistent in left hip where pin is) Tiredness/Fatigue: Moderate (4-6) Drowsiness/Sedation: Moderate (4-6) Nausea: With vomiting (x2) Anorexia: Moderate (4-6) Feelings of wellbeing/Perceived Quality of Life: Good, Acceptable Sleep: Sleeps well Constipation: Yes, Intermittent constipation Performance Status: Patient is ambulatory for short distances, does use her cane. She is limited by her pain with prolonged standing in her left femur area. She is still able to manage her ADLs, but does worry about the future. - Palliative Care Discussion: After much discussion, trying to tease out patient's anxiety regarding need to know prognosis and plan for the future, patient does admit would feel better even if she is not living there, that she has "a plan B". Whether this is a place to rent, place to buy, just a place that might accommodate if she were to need accommodations for her mobility/functional status. I did review with her that currently her disease is metastatic to the bone only, certainly she may expect functional decline in the future, but nothing imminent. We did discuss her coping, which is to be a load planner, and not being able to plan around this cancer has been very stressful and anxiety producing for her. I encouraged her to continue to do things that would help her let go of some of this, if she has the financial means to secure a place, but tried to bring her back to living in the moment. Whether she has 3 months or 3 years, would encourage her to find a way to experience and continue with her current quality of life which is acceptable right now. She likes to knit, read, has been of course more isolated because of the pandemic. She loves her current home, view, and neighborhood where she lives currently. She very much enjoys her family, elana es with friends, and is finding ways to accommodate this with zoom and technology. She does not like to talk much about her distress or feelings regarding that she is "dying of her cancer". We will continue to try and assist patient with her coping, goals, and ways to help her be more in the present and find some comfort and montez in her current situation. Results - Lab Results Lab results reviewed: Yes Impression and Recommendations - Palliative Care Impression: This is a 74-year-old woman with metastatic stage IV breast cancer with mets to the bone only. She has had some improvement with pain in her left hip and lower back with radiation, still has residual pain in her left femur most likely attributed to her pin. She did experience some proctitis and residual GI issues related to her radiation, but this is starting to resolve. She does percent is quite anxious regarding her end-of-life and end-of-life planning. Palliative care meeting with patient to initiate support, continue provide anticipatory guidance, assist with symptom management. Recommendations/Counseling Done: 1. Left Leg pain. This most likely is still residual from her ORIF, she does get relief with intermittent use of ibuprofen and heating pad. She is not interested in pursuing further physical therapy, as she does find weightbearing exacerbates her pain. She is current he is satisfied with her current regimen, she is quite fearful of constipation and the use of tramadol. She does have it available though if it does exacerbate. 2. Constipation. The patient has been having issues alternating with diarrhea and constipation. She did initiate the Florastor daily with some improvement. Unfortunately she had some recurrent episodes particular of nausea and vomiting over weekend. It does respond to the Zofran. The Zofran is constipating as well. Encouraged to continue the Florastor, use MiraLAX and titrate accordingly for regular soft bowel movements daily, and reviewed diet modifications and information to decrease likelihood of further nausea/vomiting episodes. 3. Anxiety. Patient remains quite distressed regarding pending decline, encouraged patient to follow through on her "Plan B". This does appear to be a significant anxiety for her not knowing the specifics around prognosis though reviewed information she had received previously with 18-24 months. We did discuss in the context of this that she needs to find something that will relieve this anxiety, which she does feel is to further pursue alternative living. We discussed she did not need to make that transition until it became more difficult, and continue to focus on things that bring her into the moment and aligned with what she perceives his quality of life. She is not interested in any pharmaceutical support. 4. Advanced care planning. We will continue to explore advanced care planning documents and wishes as continue to develop rapport. She is very anxious about her pending decline, and it seems this is easily triggered by exploring these i ssues. She admits for her that feeling out of control is very difficult. Reaffirmed that having serious cancer certainly can exacerbate this, and with all the unknowns is adding to her stress. 45 minutes with greater than 50% of this done in counseling regarding looking at coping mechanisms, anxiety, GI issues, and anticipatory guidance
== END 2020-03-17 15:01 | disposition home or self-care (01) ==
LOC: PC 15:00
PROVIDERS: ATTEND Nurse Practitioner Adult Health
DX: Z51.5 Encounter for palliative care (principal); M79.605 Pain in left leg; K59.00 Constipation, unspecified; F41.9 Anxiety disorder, unspecified; C50.911 Malignant neoplasm of unspecified site of right female breast; C18.9 Malignant neoplasm of colon, unspecified; C79.51 Secondary malignant neoplasm of bone; Z79.899 Other long term (current) drug therapy
CPT/HCPCS: 99215

== ENCOUNTER 2020-04-25 09:26 | Outpatient (CLI) | payer MEDICARE, BC ==
--- NOTE | 2020-04-25 19:00 | Nuclear Medicine Report ---
PROCEDURE: Bone Whole Body INDICATIONS: BREAST CA RADIOPHARMACEUTICAL: 25.6 mCi Tc-99m MDP IV. TECHNIQUE: Delayed whole-body scintigrams were obtained approximately 3-4 hours after intravenous injection of r adiotracer. Anterior and posterior views were acquired from vertex to feet. Additional left and rig ht oblique views of the skull and cervical spine were obtained. COMPARISON: Whole-body bone scan, 12/05/2019, 03/30/2019 and . FINDINGS: There are multiple foci of mildly increased activity involving the thoracic and lumbar spi ne, multiple ribs bilaterally, scapulae bilaterally, bony pelvis, humeri bilaterally and femurs bilat erally, consistent with metastases. Compared to the last exam, there is no significant change. IMPRESSION: Widespread metastatic disease is present. There is no significant changed when compared to the last bone scan. Reviewed by: Janine Shankar MD on 04/25/2020 6:59 PM PDT Approved by: Janine Shankar MD on 04/25/2020 6:59 PM PDT Station ID: [id number]
== END 2020-04-25 09:27 | disposition home or self-care (01) ==
LOC: DI 09:26
PROVIDERS: ATTEND Internal Medicine Hematology & Oncology
DX: C50.919 Malignant neoplasm of unspecified site of unspecified female breast (principal); C79.51 Secondary malignant neoplasm of bone
CPT/HCPCS: 78306

== ENCOUNTER 2020-08-25 08:59 | Outpatient (CLI) | payer MEDICARE, BC ==
--- NOTE | 2020-08-25 15:28 | Nuclear Medicine Report ---
PROCEDURE: Bone Whole Body INDICATIONS: BREAT CA RADIOPHARMACEUTICAL: 25.1 mCi Tc-99m MDP IV. TECHNIQUE: Delayed whole-body scintigrams were obtained approximately 3-4 hours after intravenous injection of r adiotracer. Anterior and posterior views were acquired from vertex to feet. Additional left and rig ht oblique views of the skull and cervical spine were obtained. COMPARISON: Whole-body bone scan, 04/25/2020, 11/27/2019, 03/30/2019 and 10/03/2018. FINDINGS: Foci of mildly increased MDP uptake consistent with metastases involving the thoracic and lumbar spine, multiple ribs bilaterally, scapulae bilaterally, bony pelvis, humeri bilaterally and fe murs bilaterally seen on the prior bone scans are less conspicuous on the current exam. Many lesions are no longer visible. No new lesions are identified. Intense uptake in the right wrist is compared with the injection site. IMPRESSION: There is improved bone scan compared to the last exam. Reviewed by: Janine Shankar MD on 08/25/2020 3:27 PM PDT Approved by: Janine Shankar MD on 08/25/2020 3:27 PM PDT Station ID: [id number]
== END 2020-08-25 09:00 | disposition home or self-care (01) ==
LOC: DI 08:59
PROVIDERS: ATTEND Internal Medicine Hematology & Oncology
DX: C50.919 Malignant neoplasm of unspecified site of unspecified female breast (principal)
CPT/HCPCS: 78306

== ENCOUNTER 2020-09-29 13:00 | Outpatient (CLI) | payer MEDICARE, BC ==
--- NOTE | 2020-09-29 16:27 | CONSULTATION NOTE ---
Palliative Care Follow Up - Referral Referring Provider: Dr. Asael Bergeron Time of Visit: 1300 60 minutes Referral setting: [facility] [place] Referral Reason: Advanced Care Planning/Met Breast CA bone and liver - Information Sources Records reviewed: Previous records reviewed History/Review of Systems obtained from: Patient, Family ( Bronson present) Exam limitations: No limitations - History of Present Illness Update Brief HPI Update: This is a 75-year-old woman who was diagnosed with stage IV right breast cancer with diffuse bony mets since 06/2017. Most recently was diagnosed with new liver mets 08/25/2020 and started on low-dose Taxol. She is appropriately distressed that her ongoing progression of her disease, but please do so far she has been managing her symptoms, as well has her Tumor marker has shown a response to her most recent chemotherapy. What is notable is her weight loss, she was 174 01/26, last visit with PC in March was 158, last visit this month was 122. She reports she has early satiety, but feels like she is eating balanced. She reports her weight loss has slowed down. She is eating small frequent meals, and frequent protein snacks. Patient reports pain 1 out of 10, is trying to remain distracted and continues with her young gift of knitting making hats both for homeless and for the [facility]. She is getting weaker, she came in with her in a wheelchair. She reports this has happened since she initiated chemotherapy, is using the cane for mobility, reports she is still able to go up and down stairs which is the threshold for needing to transition to assisted living. They do have a room at [facility], though this comes with some concerns given the resurgence of Covid. 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 Dr. Bergeron, deferred her back to palliative care, to discuss the POLST. She and her are here to follow-up on defining goals. Past Medical History: History of stage II right breast cancer 2017, lumpectomy with sentinel node biopsy, tamoxifen x5 years till 2012, Right colectomy and adjuvant therapy with 5 years for stage II colon cancer in 2013, pelvic fracture, left hip fracture with surgical fixation, hypertension, high cholesterol, hypothyroidism, glaucoma, Rosacea, cataract surgery Social History - Living Situation Living arrangement: At home Living Situation: With spouse/s.o. Support System: She is still living in their young home with her . She and her and over 54 years, had 2 daughters and have been disappointed not able to see their grandchildren secondary to Covid and vaccine status. 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 She does perceive her quality of life is starting to decline, but is concerned in the context of transitioning to a new setting, she has not met the threshold which is unable to go up and down the stairs. They do have a place to [facility] and are ready for that transition if needed, depending on follow-up regarding Covid concerns Medications/Allergies - Medications Home Medications: Ambulatory Orders Medication Instructions Recorded Confirmed Levothyroxine Sodium [Levoxyl] 100 mcg PO QDAC 06/19/12 09/29/20 Multivitamin [Multi-Vitamin Daily] 1 each PO DAILY 06/19/12 09/29/20 - Allergies Allergies/Adverse Reactions: Allergies Allergy/AdvReac Type Severity Reaction Status Date / Time adhesive Allergy Severe Rash Verified 09/01/20 14:10 cephalexin monohydrate * Allergy Intermediate Hives Verified 09/01/20 14:10 [From Keflex] morphine AdvReac Diaphoresis Verified 09/01/20 14:10 Tetracyclines AdvReac Nausea Verified 09/01/20 14:10 Review of Systems - Constitutional Constitutional: reports: Fatigue, Weight loss (122). denies: Fever, Chills - Eyes Eyes: reports: Vision loss, Corrective lenses - Cardiovascular Cardiovascular: reports: Decr. exercise tolerance - Gastrointestinal Gastrointestinal: reports: Nausea (feels poorly first day after chemo), Bloating, Early satiety. denies: Constipation (reports managing bowels) - Musculoskeletal Musculoskeletal: reports: Back pain, Muscle aches, Limited range of motion (left hip), Assistive devices (uses cane or crutch with brace for balance) - Integumentary Integumentary: reports: Dryness - Neurological Neurological: reports: Focal weakness (LE), Abnormal gait - Psychiatric Psychiatric: denies: Depression (mild), Anxiety (moderate) - Endocrine Endocrine: reports: Hypothyroidism - Hematologic/Lymphatic Hematologic/Lymph: reports: Anemia (8.8). denies: Recurrent infections - All Other Systems All Other Systems: reports: Reviewed and negative Physical Exam - Physical Exam General Appearance: positive: No acute distress, Alert, Anxious Eyes Bilateral: positive: Normal inspection ENT: positive: No signs of dehydration Neck: positive: Trachea midline Respiratory: positive: No respiratory distress Skin: positive: Pallor Neurologic/Psychiatric: positive: Oriented x3, Mood/affect nml, Flat affect Palliative Care - POLST Patient has POLST: Yes POLST Status: DNR, Selective Treatment (completed at visit) Pain: Pain unchanged, Location (left hip), Severity (1/10) Tiredness/Fatigue: Mild (1-3) Drowsiness/Sedation: Mild (1-3) Nausea: None Anorexia: Mild (1-3) Dyspnea: None, Comment (seems breathless with conversation; suspect her anemia) Depression: None Anxiety: None Feelings of wellbeing/Perceived Quality of Life: Fair, Worsening Sleep: Sleeps well Constipation: No Performance Status: Patient's coping mechanisms have been to plan, she is focused on getting her advanced care planning documents completed. Introduced what Dr. SAMEER RICE was talking about was the POLST. She is very clear that she wants to be a DNR, we did discuss though in the context of other decisions that might come up what is most important to her now. She is an active treatment, she does stay distracted and engaged with her knitting, keeping in contact with her family, and is still enjoying her home. She is very practical, does have some anxiety about her transition plan at [facility], related to Covid and precautions there. So far she is still able to manage the steps at her home, this is the threshold for transitioning. Results - Lab Results Lab results reviewed: Yes Impression and Recommendations - Palliative Care Impression: This is a 75-year-old woman with stage IV metastatic breast cancer to the bones and liver. She is currently receiving Taxol, and feeling like she is adjusting to her new schedule. She remains anxious around her end-of-life and end-of-life planning, palliative care meeting with patient and today to complete POLST and advanced care planning.Patient currently with low symptom burden, will remain available for patient and if would like further support. Recommendations/Counseling Done: 1. Weight loss. Patient does have fairly dramatic weight loss, she does report multiple strategies she is using to address this. At this point in time appears to be early satiety, will monitor if needs a appetite stimulant. She may benefit from short term dexamethasone 2 mg daily particularly in the setting of bone pain. 2. Constipation. Patient reports she is managing her constipation without any difficulties, declines any further intervention. 3. Anxiety. Patient continues with high anxiety, she and her have notable supportive relationship. She does have her plan in place for transition when needing to have increased support, though there are some anxieties regarding in the midst of Covid. 4. Advanced care planning. Reviewed current documents, with in the context of needing a POLST particularly of transition to [facility]. Counseling provided regarding this, we did complete the form with a DN AR, selective treatments with the primary goal of treating medical conditions while avoiding invasive measures including DNI. At this point in time she would like to continue to focus on quality of life spending time with family and treat reversible conditions and end-of-life a comfortable respectful , I did introduce this in the context of hospice support. Will send copies to H and primary care physician. Tiesha herrera and educated on need to put POLST on refrigerator and goal of POLST. Did offer ongoing support when patient accepts, will continue to follow for symptom management as accepted. 60 minutes including review of records, scans, labs, [id number] with patient and for family counseling regarding ACP, review of symptoms and anticipatory guidance.
== END 2020-09-29 13:01 | disposition home or self-care (01) ==
LOC: PC 13:00
PROVIDERS: ATTEND Nurse Practitioner Adult Health
DX: Z51.5 Encounter for palliative care (principal); C50.911 Malignant neoplasm of unspecified site of right female breast; C78.7 Secondary malignant neoplasm of liver and intrahepatic bile duct; C79.51 Secondary malignant neoplasm of bone; R63.4 Abnormal weight loss; Z85.038 Personal history of other malignant neoplasm of large intestine; Z90.49 Acquired absence of other specified parts of digestive tract; I10 Essential (primary) hypertension; E78.00 Pure hypercholesterolemia, unspecified; E03.9 Hypothyroidism, unspecified; H40.9 Unspecified glaucoma; F41.9 Anxiety disorder, unspecified; Z66 Do not resuscitate; D64.9 Anemia, unspecified; K59.00 Constipation, unspecified
CPT/HCPCS: 99215

== ENCOUNTER 2020-12-10 10:58 | Day surgery (SDC) | payer MEDICARE, BC ==
[2020-12-10] MEDS ORDERED: LACTATED RINGERS 1,000 ML IV ONE ×2 (11:08→15:20)
[2020-12-10] MEDS ORDERED: CEFAZOLIN SODIUM IN 0.9 % NACL 0 GM/0 ML BAG IV ONE (11:57)
--- NOTE | 2020-12-10 13:29 | ANESTHESIA ---
Pre-Anesthesia VS, & Labs - Diagnosis Metastatic breast cancer - Procedure port placement Vital Signs: Temp Pulse Resp BP Pulse Ox 36.6 C 86 12 148/62 H 99 12/10/20 11:25 12/10/20 11:25 12/10/20 11:25 12/10/20 11:25 12/10/20 11:25 Height: 5 ft 4 in Weight (kg): 56.3 kg Body Mass Index: 21.3 BMI Classification: Healthy weight - NPO >8 hours - Is Patient ?: No Home Medications and Allergies Levothyroxine Sodium [Levoxyl] 100 mcg PO QDAC 06/19/12 Multivitamin [Multi-Vitamin Daily] 1 each PO DAILY 06/19/12 Allergies/Adverse Reactions: Allergies Allergy/AdvReac Type Severity Reaction Status Date / Time adhesive Allergy Severe Rash Verified 09/01/20 14:10 cephalexin monohydrate * Allergy Intermediate Hives Verified 09/01/20 14:10 [From Keflex] morphine AdvReac Diaphoresis Verified 09/01/20 14:10 Tetracyclines AdvReac Nausea Verified 09/01/20 14:10 Anes History & Medical History - Anesthetic History Anesthesia Complications: reports: No previous complications - Medical History Cardiovascular: reports: Hypertension, High cholesterol Pulmonary: reports: None Gastrointestinal: reports: Colon polyps, Other Urinary: reports: Incontinence, Nocturia, Frequency Neuro: reports: None Musculoskeletal: reports: Chronic back pain, Other Endocrine/Autoimmune: reports: HyPOthyroidism Blood Disorders: reports: None Skin: reports: Rosacea Smoking Status: Never smoker Psychosocial: reports: No issues indicated History of Cancer?: Yes (breast cancer with mets, currently on chemo. Has had chest radiation) Other Past Medical History: Hx of colon cancer - Surgical History General: reports: Bowel surgery, Colonoscopy Eyes Ears Nose Throat (EENT): reports: Cataracts Gynecologic: reports: Mastectomy (partial on right.) Orthopedic: reports: Other Exam General: Alert, Oriented x3, Cooperative, No acute distress Dental: WNL Mouth Openin Fingerbreadth Neck Mobility: Normal Mallampati classification: II Thyromental Distance: 4-6 cm Mental/Cognitive Status: Alert/Oriented X3, Normal for patient Plan Anesthesia Type: MAC Consent for Procedure(s) Verified and Reviewed: Yes Code Status: Attempt Resuscitation ASA classification: 4-Incapacitating disease Is this case an emergency?: No
[2020-12-10] MEDS ORDERED: LIDOCAINE 1% 50 ML MDV ONE (13:59)
[2020-12-10] MEDS ORDERED: BUPIVACAINE 0.25% PF 30 ML VIAL ONE (13:59)
[2020-12-10] MEDS ORDERED: CLINDAMYCIN 900 MG/50 ML 50 ML IV ONE (14:03)
[2020-12-10] MEDS ORDERED: BUPIVACAINE 0.25% PF 30 ML VIAL SUBQ ONE (14:42)
[2020-12-10] MEDS ORDERED: LIDOCAINE 1% 50 ML MDV SUBQ ONE (14:42)
[2020-12-10] MEDS ORDERED: HYDROcod/ACETAM 5/325 MG TABLET PO PRN (15:26)
--- NOTE | 2020-12-10 15:36 | OPERATIVE REPORT ---
Operative Report - General Procedure Date: 12/10/20 Planned Procedure: left subclavian power port placement Pre-Op Diagnosis: breast cancer Procedure Performed: right internal jugular power port placement Post Op Diagnosis: breast cancer and need for port - Procedure Note Primary Surgeon: clyde love Anesthesia Technique: Local, MAC Estimated Blood Loss (mL): 5 Indications: as above Findings: left subclavian accessed; however, guidewire would not go down the svc right internal jugular easily accessed first pass Complications: none - Other Other Information/Narrative: The patient was properly identified brought to the operating room and placed in supine position. Monitored anesthesia care was given as well as IV sedation. She was prepped and draped in a sterile fashion and given preoperative antib iotics. Local anesthetic was given. The left subclavian vein was accessed. Guidewire was placed. The guidewire repeatedly would go into the internal jugular vein on the left. The right internal jugular vein was then easily accessed. Guidewire placed and position confirmed under fluoroscopy. A 3 cm incision was made right upper chest. Subcutaneous pocket created. Portacatheter tubing was then brought up to the internal jugular access point. Portacatheter tubing was flushed and then easily placed down a dilator peel-away sheath. Portacatheter tubing was pulled back under fluoroscopic guidance until the tip was at the junction of the atrium and the superior vena cava. The tubing flushed very easily in this location. It was then cut to size and assembled. Heparin was given. The port was secured with interrupted 5-0 Prolene suture. Buried interrupted subdermal 3-0 Vicryl sutures were then placed. Skin was closed with running or buried interrupted 4-0 Monocryl subcuticular. Dermabond was placed. She tolerated the procedure well and was brought to recovery in good condition.
[2020-12-10 15:40] VITALS: BP 136/53
--- NOTE | 2020-12-10 18:10 | ANESTHESIA POST OP EVALUATION ---
Anesthesia Post Eval - Post Anesthesia Eval Vitals: Last Vital Signs Temp 37.4 C 12/10/20 15:20 Pulse 84 12/10/20 15:39 Resp 18 12/10/20 15:39 BP 136/53 H 12/10/20 15:39 Pulse Ox 100 12/10/20 15:39 CV Function Including HR & BP: Stable Pain Control: Satisfactory Nausea & Vomiting: Negative Mental Status: Baseline Respiratory Status: Airway Patent Hydration Status: Satisfactory Anesthesia Complications: None
== END 2020-12-10 10:59 | disposition home or self-care (01) ==
LOC: SDS 10:58
PROVIDERS: ATTEND Surgery
DX: C50.919 Malignant neoplasm of unspecified site of unspecified female breast (principal)
CPT/HCPCS: 36561; C1788; J7120

== ENCOUNTER 2021-02-17 13:00 | Outpatient (CLI) | payer MEDICARE, BC ==
[2021-02-17] MEDS ORDERED: GADOBUTROL 7.5 MMOL/7.5 ML VIAL ONE (13:03)
[2021-02-17] MEDS ORDERED: GADOBUTROL 7.5 MMOL/7.5 ML VIAL IVP ONE (16:56)
--- NOTE | 2021-02-17 19:13 | MRI Report ---
PROCEDURE: Brain W/WO INDICATIONS: BREAST CA CONTRAST: IV CONTRAST: Gadavist ml: 5.8 TECHNIQUE: Noncontrast axial T1 spin echo, axial T2 fast spin echo, sagittal and axial FLAIR, coronal T2 fast sp in echo, axial gradient echo, axial diffusion and ADC through the brain. After the administration of contrast, axial and coronal T1 spin echo with fat saturation through the brain. COMPARISON: None. FINDINGS: Image quality: Excellent. CSF spaces: Basal cisterns are patent. No extra-axial fluid collections. Ventricles are normal in size and shape. Brain: No midline shift. No intracranial bleeds or masses. No abnormal intracranial enhancement. There is cerebral volume loss for age. There is periventricular white matter chronic small vessel is chemic change. The brainstem appears normal. Diffusion-weighted images demonstrate no acute ischemi c insults. No chronic ischemic insults. Normal intravascular flow voids are present. Skull and face: Calvarial marrow is normal in signal. Orbits appear normal. Incidental note is ma de of bilateral lens replacements. Sinuses: Sinuses and mastoids appear clear. IMPRESSION: No masses or abnormal enhancement can be seen to suggest intracranial metastatic disease . Age-appropriate brain parenchymal volume loss and chronic small vessel ischemic change can be seen. No findings of acute or subacute infarction are seen. Reviewed by: Jesus Pope MD on 02/17/2021 6:12 PM [facility] Approved by: Jesus Pope MD on 02/17/2021 6:12 PM [facility] Station ID: [id number]
[2021-02-20] MEDS ORDERED: SINCALIDE 1 MCG in SODIUM CHLORIDE 0.9% 50 ML IV ONE (17:21)
--- NOTE | 2021-02-21 08:29 | Nuclear Medicine Report ---
PROCEDURE: Bone Whole Body INDICATIONS: BREAST CA RADIOPHARMACEUTICAL: 25.1 mCi Tc-99m MDP IV. TECHNIQUE: Delayed whole-body scintigrams were obtained approximately 3-4 hours after intravenous injection of r adiotracer. Anterior and posterior views were acquired from vertex to feet. Additional left and rig ht oblique views of the skull and cervical spine were obtained. COMPARISON: Whole-body bone scan, 08/25/2020, 04/25/2020 and 12/05/2019. FINDINGS: Again noted are numerous foci of mildly increased MDP uptake involving the thoracic and duy mbar spine, multiple ribs bilaterally, scapulae bilaterally, bony pelvis, humeri bilaterally and femu rs bilaterally, not significantly changed from the last exam, consistent with osseous metastases. No new lesions are identified. IMPRESSION: Stable bone scan. Reviewed by: Janine Shankar MD on 02/21/2021 8:28 AM PST Approved by: Janine Shankar MD on 02/21/2021 8:28 AM PST Station ID: [id number]
== END 2021-02-17 20:00 ==
LOC: DI 13:00
PROVIDERS: ATTEND Internal Medicine Hematology & Oncology
DX: C50.111 Malignant neoplasm of central portion of right female breast (principal); C18.9 Malignant neoplasm of colon, unspecified
CPT/HCPCS: 70553; A9585; 78306

== ENCOUNTER 2021-02-20 09:30 | Outpatient (CLI) | payer MEDICARE, BC | END 2021-02-20 17:30 | LOC: DI 09:30 | PROVIDERS: ATTEND Internal Medicine Hematology & Oncology | DX: C50.111 Malignant neoplasm of central portion of right female breast (principal); C18.9 Malignant neoplasm of colon, unspecified; G31.89 Other specified degenerative diseases of nervous system; I67.82 Cerebral ischemia | CPT/HCPCS: 78306; J7040 ==